=== PATIENT | female | born 1995 | race African-American/Black ===

== ENCOUNTER 2017-03-21 13:48 | Inpatient (IN) | payer OTHER ==
[2017-03-21] VITALS (12 sets, daily range): BP systolic 120–163; BP diastolic 79–112; PULSE 60–123; RESP 14–15; TEMP 93.7–98.3; O2SAT 97–100
[~2017-03-21 13:48] MED LIST: Z.0.NO CURRENT MEDS
[2017-03-21] MEDS ORDERED: WATER IV ONE ×2 (14:00)
[2017-03-21] MEDS ORDERED: SODIUM CHLOR 0.9% 1000 ML INJ 1,000 ML IV ONE (14:00)
[2017-03-21] MEDS ORDERED: ACETYLCYSTEINE IV ONE ×4 (14:00)
[2017-03-21] MEDS ORDERED: ACETYLCYSTEINE INJ 3,750 MG in DEXTROSE 5% IN WATE 500 ML INJ 500 ML IV ONE ×2 (14:00)
[2017-03-21] MEDS ORDERED: DEXTROSE 5% IV ONE ×4 (14:00)
[2017-03-21] MEDS ORDERED: WATE IV ONE ×2 (14:00)
[2017-03-21] MEDS ORDERED: ETOMIDATE 20 MG/10 ML VIAL IV PUSH ONE (14:30)
[2017-03-21] MEDS ORDERED: ACTIVATED CHARCOAL LIQUID 25 GM/120 ML BTL NG ONE (14:30)
[2017-03-21] MEDS ORDERED: SUCCINYLCHOLINE CHLORIDE 200 MG/10 ML VIAL IV PUSH ONE (14:30)
[2017-03-21] MEDS ORDERED: PROPOFOL 1000 MG/100 ML INJ 100 ML ONE (14:37)
[2017-03-21 14:43] LABS: AUTOMATED NEUTROPHIL # 2.1 TH/MM3 (1.8-7.7); BASOPHIL % 0.6 % (0.0-2.0); HEMATOCRIT 36.6 % (35.0-46.0); HEMO FLAGS DIFF FINAL; LYMPH % 19.9 % (9.0-44.0); LYMPHOCYTE # 0.6 TH/MM3 (1.0-4.8); MEAN CELL VOLUME 79.2 FL (80.0-100.0); MEAN CORPUSCULAR HEMOGLOBIN 25.7 PG (27.0-34.0); MEAN CORPUSCULAR HGB CONC 32.4 % (32.0-36.0); MONO % 8.4 % (0.0-8.0); NEUT % 71.1 % (16.0-70.0); PLATELET COUNT 218 TH/MM3 (150-450); RED BLOOD COUNT 4.63 MIL/MM3 (4.00-5.30); RED CELL DISTRIBUTION WIDTH 14.2 % (11.6-17.2)
[2017-03-21] MEDS ORDERED: PROPOFOL 1000 MG/100 ML INJ 100 ML IV SCH ×2 (14:45→16:00)
[2017-03-21 14:54] LABS: ANION GAP 12 MEQ/L (5-15)
--- NOTE | 2017-03-21 15:00 | PD ---
HPI Chief Complaint: overdose Time Seen by Provider: 13:51 Travel History International Travel<30 days: No Contact w/Intl Traveler<30days: No Traveled to known affect area: No History of Present Illness HPI 22-year-old female came to the emergency room with history of Tylenol PM overdose. Patient was in a hotel and the cost estimating manager was trying to get her out of the hotel. The fire department paramedics were called incidentally in the hotel for another patient and saw this patient from a distance and did not like the way she looked. They asked the instrumental musician to come and do a welfare check. When the instrumental musician arrived they agreed and called EMS to come and take her to the emergency room. EMS found 3 bottles of Tylenol PM all of them bought this morning. Out of the 3 bottles, one was still sealed. The other 2 had their seal open and total of 120 pills missing. Each pill was 500 mg of acetaminophen and 25 mg of Benadryl. Patient was tachycardic and delirious. She was talking but not making sense and sort of incoherent. Upon arrival her GCS was 13 and heart rate was in 1 teens. They did not notice any vomitus in the area. [facility] Past Medical History Narrative Medical List of her past medical, surgical, social and family history was reviewed from the nursing note. Asthma: Yes Cardiovascular Problems: No Diminished Hearing: No Genitourinary: No Musculoskeletal: Yes (scoliosis) Neurologic: No Respiratory: Yes Sickle Cell Disease: No Social History Alcohol Use: No Tobacco Use: No Substance Use: No Allergies-Medications (Allergen,Severity, Reaction): Coded Allergies: No Known Allergies (Verified , 08/25/12) Comments No known drug allergies. Reported Meds & Prescriptions Reported Meds & Active Scripts Active Active Prescriptions or Reported Medications Unobtainable Narrative Medication List of her home medications reviewed from the nursing note. Review of Systems Except as stated in HPI: all other systems reviewed are Neg Physical Exam Narrative GENERAL: Eyes open and looking around but not answering questions appropriately. Patient is mumbling and incomprehensible words SKIN: Focused skin assessment warm/dry. HEAD: Atraumatic. Normocephalic. EYES: Pupils equal and round. No scleral icterus. No injection or drainage. ENT: No nasal bleeding or discharge. Mucous membranes pink and moist. NECK: Trachea midline. No JVD. CARDIOVASCULAR: Regular rate and rhythm. No murmur appreciated. RESPIRATORY: No accessory muscle use. Clear to auscultation. Breath sounds equal bilaterally. GASTROINTESTINAL: Abdomen soft, non-tender, nondistended. Hepatic and splenic margins not palpable. MUSCULOSKELETAL: No obvious deformities. No clubbing. No cyanosis. No edema. NEUROLOGICAL: GCS of 13. No obvious cranial nerve deficits. Motor grossly within normal limits. Normal speech. PSYCHIATRIC: Seems delirious, poor insight and judgment Data Data Last Documented VS Vital Signs Date Time Temp Pulse Resp B/P Pulse Ox O2 Delivery O2 Flow Rate FiO2 03/21/17 14:50 100 50 03/21/17 14:45 123 15 163/112 Room Air 03/21/17 14:15 98.3 Orders Complete Blood Count With Diff (03/21/17 13:51) Comprehensive Metabolic Panel (03/21/17 13:51) Psych Screen (03/21/17 13:51) Drug Screen, Random Urine (03/21/17 13:51) Alcohol (Ethanol) (03/21/17 13:51) Salicylates (Aspirin) (03/21/17 13:51) Electrocardiogram (03/21/17 ) Sodium Chlor 0.9% 1000 Ml Inj (Ns 1000 M (03/21/17 14:00) Acetylcysteine Inj (Acetadote Inj) (03/21/17 14:00) Acetylcysteine Inj (Acetadote Inj) (03/21/17 14:00) Acetylcysteine Inj (Acetadote Inj) (03/21/17 14:00) Call Poison Control (03/21/17 13:59) Succinylcholine Inj (Quelicin Inj) (03/21/17 14:30) Etomidate Inj (Amidate Inj) (03/21/17 14:30) Charcoal Activated Liq (Actidose-Aqua Li (03/21/17 14:30) Propofol 1000 Mg/100 Ml Inj (Diprivan 10 (03/21/17 14:37) Propofol 1000 Mg/100 Ml Inj (Diprivan 10 (03/21/17 14:45) ^ Infusion (03/21/17 14:42) RASS (03/21/17 14:42) Neurological Rass Scale VINCENT.Q2H (03/21/17 14:42) ^ Orogastric Tube (03/21/17 14:42) Urinary Catheter Insert/Apply (03/21/17 14:42) Chest, Single Ap (03/21/17 ) Restraints Non-Violent VINCENT.Q3H (03/21/17 14:42) Tylenol (Acetaminophen) (03/21/17 14:11) Admit Order (Ed Use Only) (03/21/17 15:40) Labs Laboratory Tests Test 03/21/17 03/21/17 14:11 14:35 White Blood Count 3.0 TH/MM3 Red Blood Count 4.63 MIL/MM3 Hemoglobin 11.9 GM/DL Hematocrit 36.6 % Mean Corpuscular Volume 79.2 FL Mean Corpuscular Hemoglobin 25.7 PG Mean Corpuscular Hemoglobin 32.4 % Concent Red Cell Distribution Width 14.2 % Platelet Count 218 TH/MM3 Mean Platelet Volume 8.6 FL Neutrophils (%) (Auto) 71.1 % Lymphocytes (%) (Auto) 19.9 % Monocytes (%) (Auto) 8.4 % Eosinophils (%) (Auto) 0.0 % Basophils (%) (Auto) 0.6 % Neutrophils # (Auto) 2.1 TH/MM3 Lymphocytes # (Auto) 0.6 TH/MM3 Monocytes # (Auto) 0.3 TH/MM3 Eosinophils # (Auto) 0.0 TH/MM3 Basophils # (Auto) 0.0 TH/MM3 CBC Comment DIFF FINAL Differential Comment Sodium Level 141 MEQ/L Potassium Level 3.7 MEQ/L Chloride Level 111 MEQ/L Carbon Dioxide Level 18.2 MEQ/L Anion Gap 12 MEQ/L Blood Urea Nitrogen 5 MG/DL Creatinine 0.94 MG/DL Estimat Glomerular Filtration 91 ML/MIN Rate Random Glucose 86 MG/DL Calcium Level 7.7 MG/DL Total Bilirubin 0.6 MG/DL Aspartate Amino Transf 31 U/L (AST/SGOT) Alanine Aminotransferase 40 U/L (ALT/SGPT) Alkaline Phosphatase 55 U/L Total Protein 7.8 GM/DL Albumin 3.9 GM/DL Salicylates Level LESS THAN 1.7 MG/DL Acetaminophen Level 304.0 MCG/ML Ethyl Alcohol Level LESS THAN 3 MG/DL Urine Opiates Screen NEG Urine Barbiturates Screen NEG Urine Amphetamines Screen NEG Urine Benzodiazepines Screen NEG Urine Cocaine Screen NEG Urine Cannabinoids Screen POS MDM Medical Decision Making Medical Screen Exam Complete: Yes Emergency Medical Condition: Yes Medical Record Reviewed: Yes Interpretation(s) Twelve-lead EKG was reviewed by me. Normal sinus rhythm, normal axis, tachycardia, nonspecific ST-T wave changes. Heart rate of 124 bpm. Differential Diagnosis Intentional overdose, suicidal ideation, Tylenol toxicity Narrative Course 2:55 PM upon calculation it was noticed that patient had swallowed 60,000 mg of acetaminophen. This is significantly more than the maximum dose. The exact time taken was unknown. Given this I decided to start her on Acetadote. Order was done as per the protocol. Also I decided to give her charcoal. However given her mental status it was unsafe to give her charcoal without protecting her airway. I decided to intubate her. Please refer to my intubation note. Currently waiting for the labs, CT scan and x-ray to be done and resulted. 3:12 PM I was told that patient's Tylenol level was more than 300. Awaiting for the actual results to come through. Liver function tests is within normal limit. She has some leukopenia. Awaiting for the busher helper to call back so that the patient can be admitted to the ICU. 3:42 PM Tylenol level is 304. She'll require a repeat Tylenol level in 4 hours. But as stated the Acetadote at this point is certainly a good move. Patient is admitted to the busher helper. Rest x-ray was suggestive of a right mainstem intubation. Tube will be pulled out by 2 cm and repeat x-ray will be ordered. Critical Care Narrative Aggregate critical care time was 60 minutes. Time to perform other separately billable procedures was not included in the critical care time. My time did not include minutes spent treating any other patients simultaneously or on activities that did not directly contribute to the patient's treatment. The services I provided to this patient were to treat and/or prevent clinically significant deterioration that could result in: Tylenol overdose, altered mental status, intubation, ventilator management I provided critical care services requiring my management, as noted below: Chart data review, documentation time, medication orders and management, vital sign assessments/reviewing monitor data, ordering and reviewing lab tests, ordering and interpreting/reviewing x-rays and diagnostic studies, care of the patient and discussion of the patient with the admitting physicians. Procedures Procedure Narrative After the risks and benefits were discussed the following procedure was performed: INTUBATION: The patient was put in optimal position for the procedure. Rapid sequence intubation was initiated by me using 20 milligrams of etomidate IV and 100 milligrams of succinylcholine IV. The patient was intubated with a 7.5 cuffed endotracheal tube. Tube placement was confirmed by visualization of the tube and balloon passing through the cords, capnometry and subsequent chest x-ray. Breath sounds were equal and well aerated bilaterally postintubation. No breath sounds over stomach. Patient tolerated procedure well. EKG Prior to Arrival: No Physician Communication Physician Communication Diagnosis Primary Impression: Tylenol overdose Qualified Code: T39.1X2A - Tylenol overdose, intentional self-harm, initial encounter Additional Impression: Altered mental status Qualified Code: R41.0 - Delirium Admitting Information Admitting Physician Requests: Admit Scripts Unable to Obtain Active Prescriptions or Reported Meds Cassidy Miller MD March 21, 2017 15:00 Critical Care Narrative Aggregate critical care time was 60 minutes. Time to perform other separately billable procedures was not included in the critical care time. My time did not include minutes spent treating any other patients simultaneously or on activities that did not directly contribute to the patient's treatment. The services I provided to this patient were to treat and/or prevent clinically significant deterioration that could result in: Tylenol overdose, altered mental status, intubation, ventilator management I provided critical care services requiring my management, as noted below: Chart data review, documentation time, medication orders and management, vital sign assessments/reviewing monitor data, ordering and reviewing lab tests, ordering and interpreting/reviewing x-rays and diagnostic studies, care of the patient and discussion of the patient with the admitting physicians. Procedures Procedure Narrative After the risks and benefits were discussed the following procedure was performed: INTUBATION: The patient was put in optimal position for the procedure. Rapid sequence intubation was initiated by me using 20 milligrams of etomidate IV and 100 milligrams of succinylcholine IV. The patient was intubated with a 7.5 cuffed endotracheal tube. Tube placement was confirmed by visualization of the tube and balloon passing through the cords, capnometry and subsequent chest x-ray. Breath sounds were equal and well aerated bilaterally postintubation. No breath sounds over stomach. Patient tolerated procedure well. EKG Prior to Arrival: No Diagnosis Primary Impression: Tylenol overdose Qualified Code: T39.1X2A - Tylenol overdose, intentional self-harm, initial encounter Additional Impression: Altered mental status Qualified Code: R41.0 - Delirium Admitting Information Admitting Physician Requests: Cassidy Crain MD March 21, 2017 15:00
[2017-03-21 15:04] LABS: ALKALINE PHOSPHATASE 55 U/L (45-117); ALT (GPT) 40 U/L (10-53); AST (GOT) 31 U/L (15-37); BICARBONATE 18.2 MEQ/L (21.0-32.0); BLOOD UREA NITROGEN 5 MG/DL (7-18); CHLORIDE 111 MEQ/L (98-107); GLOMERULAR FILTRATION RATE 91 ML/MIN (>89); POTASSIUM 3.7 MEQ/L (3.5-5.1); SODIUM (NA) 141 MEQ/L (136-145); TOTAL BILIRUBIN ADULT 0.6 MG/DL (0.2-1.0)
--- NOTE | 2017-03-21 15:25 | RADRPT ---
EXAM DATE/TIME: 03/21/2017 15:01 [facility] COMPARISON: No previous studies available for comparison. INDICATIONS : Post ET tube placement and OG tube placement MEDICAL HISTORY : None. SURGICAL HISTORY : None. ENCOUNTER: Initial ACUITY: 1 day PAIN SCORE: Non-responsive. LOCATION: Bilateral chest FINDINGS: A single view of the chest demonstrates the lungs to be symmetrically aerated without evidence of mas s, infiltrate or effusion. Endotracheal tube with tip at the orifice of the right mainstem bronchus. Nasogastric tube with tip in stomach, the side hole is at the GE junction and should be advanced. Th e cardiomediastinal contours are unremarkable. Osseous structures are intact. CONCLUSION: 1. Endotracheal tube with tip at the orifice of the right mainstem bronchus. This should be retracted 1 cm. 2. Nasogastric tube with tip in the stomach. This could also be advanced at least 5 cm. Amos Gonzáles MD on March 21, 2017 at 15:21 Board Certified Radiologist. This report was verified electronically.
[2017-03-21 15:29] LABS: BARBITURATES, URINE NEG (NEG); COCAINE, URINE NEG (NEG)
[2017-03-21 15:30] LABS: AMPHETAMINE, URINE NEG (NEG)
[2017-03-21] MEDS ORDERED: fentaNYL DRIP 250 ML IV SCH (15:45)
[2017-03-21] MEDS ORDERED: POTASSIUM PHOSPHATE MONOBASIC 500 MG TAB PO/TUBE PRN (15:45)
[2017-03-21] MEDS ORDERED: MAGNESIUM OXIDE 400 MG TAB PO PRN (15:45)
[2017-03-21] MEDS ORDERED: SODIUM PHOSPHATE INJ 30 MMOL in SODIUM CHLOR 0.9% 250 ML INJ 240 ML IV PRN (15:45)
[2017-03-21] MEDS ORDERED: POTASSIUM CHLOR 20 MEQ PREMIX 100 ML IV PRN ×2 (15:45)
[2017-03-21] MEDS ORDERED: POTASSIUM CHLOR 40 MEQ PREMIX 100 ML IV PRN (15:45)
[2017-03-21] MEDS ORDERED: POTASSIUM PHOSPHATE MONOBASIC 500 MG TAB PO PRN (15:45)
[2017-03-21] MEDS ORDERED: MAGNESIUM SULFATE INJ 2 GM in SODIUM CHLORIDE 0.9% INJ 96 ML IV PRN (15:45)
[2017-03-21] MEDS ORDERED: MAGNESIUM SULFATE INJ 4 GM in SODIUM CHLORIDE 0.9% INJ 92 ML IV PRN (15:45)
[2017-03-21] MEDS ORDERED: RESP: ALBUTEROL 2.5 MG/IPRATROPIUM 0.5 MG NEB (PRN) INH (15:45)
--- NOTE | 2017-03-21 15:54 | HHI.HP ---
[facility] Service Critical Care Medicine Primary Care Physician Olimpia Montalvo MD Admission Diagnosis Tylenol overdose, altered mental status Diagnosis: Chief Complaint: intentional tylenol overdose Travel History International Travel<30 Days: No Contact w/Intl Traveler <30 Da: No Traveled to Known Affected Are: No History of Present Illness This is a 22yF brought in by EMS for suspected intentional tylenol PM overdose. Unknown time of ingestion. Patient found by EMS in hotel with 120 tylenol PM 500mg tabs missing. She was tachycardic, delirious. GCS 13 on arrival to ER. She was intubated by the emergency department and proceeded with activated charcoal. The patient is intubated and sedated and unable to provide any additional history. Laboratory data is significant for a serum acetaminophen level of 304. Review of Systems ROS Limitations: Clinical Condition, Intoxication, Intubated, Altered Mental Status, Unresponsive Past Family Social History Allergies: Coded Allergies: No Known Allergies (Verified , 08/25/12) Past Medical History unknown and unobtainable secondary to the clinical condition of the patient. Per chart review: Asthma scoliosis Past Surgical History unknown secondary to the clinical condition of the patient. Reported Medications unknown secondary to the clinical condition of the patient. per chart review, it does not appear that the patient takes any home medications. Active Ordered Medications See MAR Family History unknown and unobtainable secondary to the clinical condition of the patient. Social History unknown and unobtainable secondary to the clinical condition of the patient. Physical Exam Vital Signs Vital Signs Date Time Temp Pulse Resp B/P Pulse Ox O2 Delivery O2 Flow Rate FiO2 03/21/17 14:50 100 50 Physical Exam gen: young female, lying in bed, intubated, sedated. heent: large amount of black charcoal around the oropharynx and on her hospital gown. pupils 2mm equal round and reactive. mucous membranes moist. neck: no jvd. trachea midline. orotracheally intubated. chest: equal chest rise. clear to auscultation cv: tachycardic rate, regular rhythm. sinus rhythm by telemetry abd: soft, nontender, nondistended. no guarding. extr: no peripheral edema. distal pulses 2+ neuro: RASS -3. briskly purposeful. does not follow commands. moves all extremities. Laboratory Laboratory Tests Test 03/21/17 03/21/17 14:11 14:35 White Blood Count 3.0 Red Blood Count 4.63 Hemoglobin 11.9 Hematocrit 36.6 Mean Corpuscular Volume 79.2 Mean Corpuscular Hemoglobin 25.7 Mean Corpuscular Hemoglobin 32.4 Concent Red Cell Distribution Width 14.2 Platelet Count 218 Mean Platelet Volume 8.6 Neutrophils (%) (Auto) 71.1 Lymphocytes (%) (Auto) 19.9 Monocytes (%) (Auto) 8.4 Eosinophils (%) (Auto) 0.0 Basophils (%) (Auto) 0.6 Neutrophils # (Auto) 2.1 Lymphocytes # (Auto) 0.6 Monocytes # (Auto) 0.3 Eosinophils # (Auto) 0.0 Basophils # (Auto) 0.0 CBC Comment DIFF FINAL Differential Comment Sodium Level 141 Potassium Level 3.7 Chloride Level 111 Carbon Dioxide Level 18.2 Anion Gap 12 Blood Urea Nitrogen 5 Creatinine 0.94 Estimat Glomerular Filtration 91 Rate Random Glucose 86 Calcium Level 7.7 Total Bilirubin 0.6 Aspartate Amino Transf 31 (AST/SGOT) Alanine Aminotransferase 40 (ALT/SGPT) Alkaline Phosphatase 55 Total Protein 7.8 Albumin 3.9 Salicylates Level LESS THAN 1.7 Acetaminophen Level 304.0 Ethyl Alcohol Level LESS THAN 3 Urine Opiates Screen NEG Urine Barbiturates Screen NEG Urine Amphetamines Screen NEG Urine Benzodiazepines Screen NEG Urine Cocaine Screen NEG Urine Cannabinoids Screen POS Result Diagram: 03/21/17 1411 03/21/17 1411 Imaging Last Impressions Chest X-Ray 03/21/17 0000 Signed Impressions: Service Date/Time: Tuesday, March 21, 2017 15:01 - CONCLUSION: 1. Endotracheal tube with tip at the orifice of the right mainstem bronchus. This should be retracted 1 cm. 2. Nasogastric tube with tip in the stomach. This could also be advanced at least 5 cm. Amos Gonzáles MD Assessment and Plan Assessment and Plan Assessment: 22yF with apparent intentional overdose of acetaminophen and benadryl. Poison control has been notified. Certainly she has ingested enough to be life-threatening at this time, and her acetaminophen level is very high. We will proceed with Mucomyst, serial labs. Will consult GI to follow along. frequent neuro checks and glucose checks. She remains very critically ill at this time. Neuro: Toxic Encephalopathy Intentional overdose -- q1h neuro checks -- prop/fentanyl for goal RASS -2 and vent synchrony -- psych will need to be consulted when the patient is more awake. Resp: Acute Hypoxic and Hypercarbic Respiratory Failure -- vent bundle --hob at 30 degrees -- wean fio2 for goal spo2 > 92% -- no SBT today given acute toxic ingestion CV: Sinus tachycardia -- continue telemetry -- monitor QRS width given anticholinergic overdose Renal: -- strict q1h uop -- choudhary for accurate I/Os FEN/GI: Acute acetaminophen overdose -- serial LFTs, coags -- GI consult -- q2h glucose -- serial tylenol levels -- mucomyst -- ICU electrolyte protocol -- daily bmp -- d10w @ 30 mL/hr Heme/ID: Concern for coagulopathy secondary to acute liver disease -- serial coags -- daily cbc Endo: Concern for hypoglycemia secondary to acute liver disease -- q2h glucose Prophy: -- SQH -- SCDs Lines: -- piv's Dispo: -- admit to the ICU. she remains critically ill. Critical care time: 79 minutes, exclusive of separately billable procedures. Code Status Full Code Tre Alan MD March 21, 2017 15:54
[2017-03-21] MEDS: RESP: ALBUTEROL 2.5 MG/IPRATROPIUM 0.5 MG NEB (SCH) INH ×2 (16:56→22:00)
--- NOTE | 2017-03-21 16:56 | RADRPT ---
EXAM DATE/TIME: 03/21/2017 16:30 [facility] COMPARISON: CHEST SINGLE AP, March 21, 2017, 15:01. INDICATIONS : ET tube reposition. MEDICAL HISTORY : None. SURGICAL HISTORY : None. ENCOUNTER: Subsequent ACUITY: 1 day PAIN SCORE: Non-responsive. LOCATION: Bilateral chest FINDINGS: Endotracheal tube is present in satisfactory position. Nasogastric tube is present. The sidehole is i n the distal esophagus. Mild left perihilar infiltrate now evident. Right lung is grossly clear. No e vidence of effusion. Cardiac contours are stable. CONCLUSION: Mild left perihilar infiltrate Siva Marcelo MD on March 21, 2017 at 16:53 Board Certified Radiologist. This report was verified electronically.
--- NOTE | 2017-03-21 17:09 | PD.CONS ---
HPI History of Present Illness This is a 22 year old female who was brought to the ER for evaluation as a Tylenol OD. She is currently sedated on the ventilator and unable to provide any history and therefore the history has been obtained from the EMR and nursing staff. She was found confused by EMS with a suicide letter after a wellness call was placed. She had 2 bottles of Tylenol PM 120 count, with a receipt from this morning. 76 pills were missing out of the first bottle and the second bottle was full. The nurse reports that she was confused, but awake on arrival, but intubated and placed on mechanical ventilation for airway protection. An NGT was placed in the ER and charcoal was given, but she vomited this back up. Tylenol level came back as 304, ETOH < 3, Cannabinoids (+ ). She was started on Acetylcysteine IV per protocol. GI has been consulted for further evaluation. Baseline labs- platelets 218, T. Bili 0.6, AST 31, ALT 40, Alk Phosph 55, No ammonia, no coag's. (Kathleen Cage) PFSH Past Medical History Asthma per EMR Unable to obtain Past Surgical History Unable to obtain (Kathleen Cage) Coded Allergies: No Known Allergies (Verified , 08/25/12) Medications Allergies Coded Allergies Type Severity Reaction Last Updated Verified No Known Allergies 08/25/12 Yes Active Scripts Medications Dose Route/Sig Days Date Category No Current Meds (Miscellaneous Medication) [facility] 08/25/12 Reported Tylenol PM- 76 out of 120 bottle missing, purchased this am. Family History Unable to obtain Social History Toxicology screen positive for marijuana (Kathleen Cage) Review of Systems ROS Unable to obtain (Kathleen Cage) GI Exam Vitals I&O Vital Signs Date Time Temp Pulse Resp B/P Pulse Ox O2 Delivery O2 Flow Rate FiO2 03/21/17 14:50 100 50 Imaging Last Impressions Chest X-Ray 03/21/17 0000 Signed Impressions: Service Date/Time: Tuesday, March 21, 2017 15:01 - CONCLUSION: 1. Endotracheal tube with tip at the orifice of the right mainstem bronchus. This should be retracted 1 cm. 2. Nasogastric tube with tip in the stomach. This could also be advanced at least 5 cm. Amos Gonzáles MD Laboratory Test 03/21/17 03/21/17 14:11 14:35 White Blood Count 3.0 TH/MM3 Red Blood Count 4.63 MIL/MM3 Hemoglobin 11.9 GM/DL Hematocrit 36.6 % Mean Corpuscular Volume 79.2 FL Mean Corpuscular Hemoglobin 25.7 PG Mean Corpuscular Hemoglobin 32.4 % Concent Red Cell Distribution Width 14.2 % Platelet Count 218 TH/MM3 Mean Platelet Volume 8.6 FL Neutrophils (%) (Auto) 71.1 % Lymphocytes (%) (Auto) 19.9 % Monocytes (%) (Auto) 8.4 % Eosinophils (%) (Auto) 0.0 % Basophils (%) (Auto) 0.6 % Neutrophils # (Auto) 2.1 TH/MM3 Lymphocytes # (Auto) 0.6 TH/MM3 Monocytes # (Auto) 0.3 TH/MM3 Eosinophils # (Auto) 0.0 TH/MM3 Basophils # (Auto) 0.0 TH/MM3 CBC Comment DIFF FINAL Differential Comment Sodium Level 141 MEQ/L Potassium Level 3.7 MEQ/L Chloride Level 111 MEQ/L Carbon Dioxide Level 18.2 MEQ/L Anion Gap 12 MEQ/L Blood Urea Nitrogen 5 MG/DL Creatinine 0.94 MG/DL Estimat Glomerular Filtration 91 ML/MIN Rate Random Glucose 86 MG/DL Calcium Level 7.7 MG/DL Total Bilirubin 0.6 MG/DL Aspartate Amino Transf 31 U/L (AST/SGOT) Alanine Aminotransferase 40 U/L (ALT/SGPT) Alkaline Phosphatase 55 U/L Total Protein 7.8 GM/DL Albumin 3.9 GM/DL Salicylates Level LESS THAN 1.7 MG/DL Acetaminophen Level 304.0 MCG/ML Ethyl Alcohol Level LESS THAN 3 MG/DL Urine Opiates Screen NEG Urine Barbiturates Screen NEG Urine Amphetamines Screen NEG Urine Benzodiazepines Screen NEG Urine Cocaine Screen NEG Urine Cannabinoids Screen POS Physical Examination HEENT: Normocephalic; atraumatic; no jaundice. CHEST: CTA, OETT to vent CARDIAC: Regular, mildly tachycardic ABDOMEN: Soft, nondistended, nontender; no hepatosplenomegaly; bowel sounds are present in all four quadrants. EXTREMITIES: No clubbing, cyanosis, or edema. SKIN: Normal; no rash; no jaundice. 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 Pt found with suicide note and 2 Tylenol PM bottles purchased this am according to receipt, with 76/120 missing from first bottle and none missing from 2nd bottle. Tylenol level 304. Nurse reports that she was slightly confused , but awake on arrival and intubated/mechanical ventilation for airway protection. S/P Charcoal, pt vomited this back up. Started on Acetylcysteine IV per protocol. Will get stat coags and ammonia and check LFT/PT/Ammonia q4h for now. Cont. Acetylcysteine per protocol. - Encephalopathy secondary to above. Will get baseline ammonia. - Resp. Failure. Pt intubated/mechanical ventilation for airway protection. Per EMR, there is a hx of asthma. PLAN: - NPO - Acetylcysteine per protocol - Ammonia and PT/INR/APTT now - LFT, PT/INR, Ammonia q4h - CCM following - Supportive care - Further recommendations to follow based on results of above - PT seen and examined by Dr. Hartman and myself and this note is written on his behalf (Kathleen Cage) Physician Comments Seen and examined with NA. intubated and sedated. On mucomyst protocol via IV. Monitor labs. PT/INR closely. Will follow, thank you (Reyna Hartman MD) Kathleen Cage March 21, 2017 17:09 Reyna Hartman MD March 21, 2017 18:39
[2017-03-21 17:52] LABS: APTT (PATIENT) 25.8 SEC (24.3-30.1); INTERNATIONAL NORMALIZED RATIO 1.2 RATIO
[2017-03-21] MEDS: DEXTROSE 10% INJ 1,000 ML IV SCH (18:03)
--- NOTE | 2017-03-21 18:23 | EKG ---
Date Performed: 03/21/2017 Time Performed: 14:10:23 PTAGE: 22 years EKG: SINUS TACHYCARDIA WITH SHORT MA INTERVAL NONSPECIFIC ST & T-WAVE ABNORMALITY ABNORMAL ECG NO PREVIOUS TRACING DOCTOR: You Santiago Interpretating Date/Time 03/21/2017 18:21:55
[2017-03-21] MEDS ORDERED: MIDAZOLAM 100 MG/ML INJ 100 ML ONE (19:43)
[2017-03-21] MEDS ORDERED: MIDAZOLAM 100 MG/ML INJ 100 ML IV SCH (19:45)
[2017-03-21] MEDS: CHLORHEXIDINE 0.12% (ORAL KIT) 15 ML CUP MT SCH (20:00)
[2017-03-21 21:58] LABS: APTT (PATIENT) 39.9 SEC (24.3-30.1); INTERNATIONAL NORMALIZED RATIO 1.8 RATIO
[2017-03-21 22:42] LABS: ACETAMINOPHEN 115.2 MCG/ML (10.0-30.0); INDIRECT BILIRUBIN 0.4 MG/DL (0.0-0.8); TOTAL BILIRUBIN ADULT 0.5 MG/DL (0.2-1.0)
[2017-03-21] MEDS: HEPARIN SODIUM - SQ 10,000 UNITS/ML VIAL SQ SCH (22:49)
[2017-03-22] VITALS (19 sets, daily range): BP systolic 105–147; BP diastolic 51–96; PULSE 46–115; RESP 15–26; TEMP 94.7–100.4; O2SAT 100
[2017-03-22] MEDS ORDERED: CHLORHEXIDINE GLUCONATE 2 % 1 PACK (2 CLOTHS)(extra cloths) TOPICAL PRN (00:15)
[2017-03-22 01:23] LABS: INTERNATIONAL NORMALIZED RATIO 1.2 RATIO; PROTHROMBIN TIME - PATIENT 13.4 SEC (9.8-11.6)
[2017-03-22 01:59] LABS: INDIRECT BILIRUBIN 0.7 MG/DL (0.0-0.8); TOTAL BILIRUBIN ADULT 0.9 MG/DL (0.2-1.0)
[2017-03-22] MEDS: CHLORHEXIDINE GLUCONATE 2 % 1 PACK (2 CLOTHS)(taper/protocol) TOPICAL SCH (02:55)
[2017-03-22] MEDS: RESP: ALBUTEROL 2.5 MG/IPRATROPIUM 0.5 MG NEB (SCH) INH ×3 (04:36→15:34)
[2017-03-22 04:43] LABS: HEMATOCRIT 32.5 % (35.0-46.0); MEAN CELL VOLUME 77.9 FL (80.0-100.0); MEAN CORPUSCULAR HEMOGLOBIN 26.2 PG (27.0-34.0); MEAN CORPUSCULAR HGB CONC 33.6 % (32.0-36.0); PLATELET COUNT 217 TH/MM3 (150-450); RED BLOOD COUNT 4.16 MIL/MM3 (4.00-5.30); RED CELL DISTRIBUTION WIDTH 13.6 % (11.6-17.2); REVIEW FLAG FINAL; WHITE BLOOD COUNT 4.7 TH/MM3 (4.0-11.0)
[2017-03-22 04:51] LABS: APTT (PATIENT) 26.4 SEC (24.3-30.1); INTERNATIONAL NORMALIZED RATIO 1.1 RATIO; PROTHROMBIN TIME - PATIENT 12.7 SEC (9.8-11.6)
[2017-03-22 05:13] LABS: BICARBONATE 20.8 MEQ/L (21.0-32.0); INDIRECT BILIRUBIN 0.6 MG/DL (0.0-0.8); TOTAL BILIRUBIN ADULT 0.9 MG/DL (0.2-1.0)
[2017-03-22 05:15] LABS: POTASSIUM 2.6 MEQ/L (3.5-5.1)
[2017-03-22] MEDS: POTASSIUM CHLOR 40 MEQ PREMIX 100 ML IV PRN ×3 (06:02→08:12)
[2017-03-22] MEDS: HEPARIN SODIUM - SQ 10,000 UNITS/ML VIAL SQ SCH ×3 (06:02→21:01)
[2017-03-22] MEDS: LACTULOSE SYRUP 20 GM/30 ML CUP PO SCH ×2 (09:00→19:32)
--- NOTE | 2017-03-22 10:34 | HHI.GIFU ---
Subjective Remarks Resting in bed, lightly sedated on ventilator. Does awaken and follow commands , although lethargic. Plan is to wean sedation and try to extubate today so that we can closely monitor neurological status. (Kathleen Cage) Objective Vitals I&O Vital Signs Date Time Temp Pulse Resp B/P Pulse Ox O2 Delivery O2 Flow Rate FiO2 03/22/17 08:20 100 40 03/22/17 06:00 115 03/22/17 04:14 100 40 03/22/17 04:00 40 03/22/17 04:00 108 03/22/17 04:00 100.4 108 15 117/59 100 03/22/17 02:00 92 03/22/17 01:09 100 40 03/22/17 00:51 59 03/22/17 00:17 94.7 46 15 147/96 100 03/21/17 23:51 100 100 03/21/17 23:00 60 15 135/85 100 Ventilator 40 03/21/17 22:36 99 40 03/21/17 22:00 93.7 68 15 131/79 100 Ventilator 40 03/21/17 21:00 70 15 136/96 100 Ventilator 40 03/21/17 20:00 72 15 122/83 100 Ventilator 40 03/21/17 19:00 97.9 76 15 120/81 100 Ventilator 40 03/21/17 19:00 40 03/21/17 16:55 99 40 03/21/17 14:50 100 50 03/21/17 14:45 123 15 163/112 100 Room Air 03/21/17 14:30 120 14 157/99 97 Room Air 03/21/17 14:30 40 03/21/17 14:15 118 16 97 Room Air 03/21/17 14:15 98.3 115 14 154/110 97 Room Air I/O 03/21/17 03/21/17 03/21/17 03/22/17 03/22/17 03/22/17 07:00 15:00 23:00 07:00 15:00 23:00 Intake Total 1005 ml Output Total 1700 ml 250 ml Balance -1700 ml 755 ml Intake Oral 0 ml IV Total 1005 ml Output Urine Total 1700 ml 250 ml # Voids 0 # Bowel Movements 0 Laboratory Laboratory Tests Test 03/21/17 03/21/17 03/21/17 03/21/17 14:11 14:35 17:20 20:30 White Blood Count 3.0 Red Blood Count 4.63 Hemoglobin 11.9 Hematocrit 36.6 Mean Corpuscular Volume 79.2 Mean Corpuscular Hemoglobin 25.7 Mean Corpuscular Hemoglobin 32.4 Concent Red Cell Distribution Width 14.2 Platelet Count 218 Mean Platelet Volume 8.6 Neutrophils (%) (Auto) 71.1 Lymphocytes (%) (Auto) 19.9 Monocytes (%) (Auto) 8.4 Eosinophils (%) (Auto) 0.0 Basophils (%) (Auto) 0.6 Neutrophils # (Auto) 2.1 Lymphocytes # (Auto) 0.6 Monocytes # (Auto) 0.3 Eosinophils # (Auto) 0.0 Basophils # (Auto) 0.0 CBC Comment DIFF FINAL Differential Comment Sodium Level 141 Potassium Level 3.7 Chloride Level 111 Carbon Dioxide Level 18.2 Anion Gap 12 Blood Urea Nitrogen 5 Creatinine 0.94 Estimat Glomerular Filtration 91 Rate Random Glucose 86 Calcium Level 7.7 Total Bilirubin 0.6 0.5 Aspartate Amino Transf 31 18 (AST/SGOT) Alanine Aminotransferase 40 30 (ALT/SGPT) Alkaline Phosphatase 55 29 Total Protein 7.8 5.3 Albumin 3.9 2.4 Salicylates Level LESS THAN 1.7 Acetaminophen Level 304.0 115.2 Ethyl Alcohol Level LESS THAN 3 Urine Opiates Screen NEG Urine Barbiturates Screen NEG Urine Amphetamines Screen NEG Urine Benzodiazepines Screen NEG Urine Cocaine Screen NEG Urine Cannabinoids Screen POS Prothrombin Time 13.0 20.0 Prothromb Time International 1.2 1.8 Ratio Activated Partial 25.8 39.9 Thromboplast Time Ammonia 20 15 Direct Bilirubin 0.1 Indirect Bilirubin 0.4 Test 03/22/17 03/22/17 03/22/17 00:15 01:04 04:26 Nasal Screen MRSA (PCR) MRSA NOT DETECTED Prothrombin Time 13.4 12.7 Prothromb Time International 1.2 1.1 Ratio Total Bilirubin 0.9 0.9 Direct Bilirubin 0.2 0.3 Indirect Bilirubin 0.7 0.6 Aspartate Amino Transf 23 22 (AST/SGOT) Alanine Aminotransferase 38 35 (ALT/SGPT) Alkaline Phosphatase 42 40 Ammonia 45 37 Total Protein 6.6 6.3 Albumin 3.2 3.0 White Blood Count 4.7 Red Blood Count 4.16 Hemoglobin 10.9 Hematocrit 32.5 Mean Corpuscular Volume 77.9 Mean Corpuscular Hemoglobin 26.2 Mean Corpuscular Hemoglobin 33.6 Concent Red Cell Distribution Width 13.6 Platelet Count 217 Mean Platelet Volume 8.4 Activated Partial 26.4 Thromboplast Time Sodium Level 140 Potassium Level 2.6 Chloride Level 108 Carbon Dioxide Level 20.8 Anion Gap 11 Blood Urea Nitrogen 5 Creatinine 0.85 Estimat Glomerular Filtration 102 Rate Random Glucose 88 Calcium Level 7.8 Imaging Last Impressions Chest X-Ray 03/21/17 0000 Signed Impressions: Service Date/Time: Tuesday, March 21, 2017 16:30 - CONCLUSION: Mild left perihilar infiltrate Siva Marcelo MD Physical Exam HEENT: Normocephalic; atraumatic; no jaundice. CHEST: CTA, OETT to vent. CARDIAC: RRR ABDOMEN: Soft, very mildly distended, nontender; no hepatosplenomegaly; bowel sounds are present in all four quadrants. EXTREMITIES: No clubbing, cyanosis, or edema. SKIN: Normal; no rash; no jaundice. COMMISSIONS SPECIALIST: Lethargic, lightly sedated, does awaken and follows commands. (Kathleen Cage [facility]) Assessment and Plan Plan ASSESSMENT: - Tylenol Toxicity, SA. Pt found with suicide note and 2 Tylenol PM bottles purchased this am according to receipt, with 76/120 missing from first bottle and none missing from 2nd bottle. Tylenol level 304. Nurse reports that she was slightly confused , but awake on arrival and intubated/mechanical ventilation for airway protection. S/P Charcoal, pt vomited this back up. Started on Acetylcysteine IV per protocol, on Dextrose, serial labs. PT went up last night at 2030 to 20.0, INR 1.8, but has since trended down- Latest PT/INR 12.7/1.7. T. Bili 0.9, Direct bilirubin 0.3, Indirect Bilirubin 0.6, AST 22, ALT 35, Alk Phosph 40. Ammonia 37. Started on Lactulose. Will continue Acetylcysteine per protocol. Will initiate liver workup, in case her condition worsens and she needs transfer to tertiary for transplant evaluation. Yousuf Alan- plans to wean sedation and extubate to better evaluate neuro status, continue to closely monitor glucose. - Encephalopathy secondary to above. Ammonia 37. Lactulose. - Resp. Failure. Pt intubated/mechanical ventilation for airway protection. Per EMR, there is a hx of asthma. PLAN: - NPO - Cont. Acetylcysteine per protocol - LFT, PT/INR, Ammonia q6h - AFP level - Hepatitis panel - GERARDO, ASMA, AMA - Alpha 1 Antitrypsin, Ceruloplasmin - Ferritin, Iron saturation - Neurochecks - Notify GI of worsening coagulopathy, rise in LFTs - CCM following- D/W Dr. Alan - Supportive care - Further recommendations to follow based on results of above - PT seen and examined by Dr. Hartman and myself and this note is written on his behalf (Kathleen Cage) Physician Comments Seen and examined, family at bedside. LFTS stable. On mucomyst per protocol. INR levels good. Monitor glucose and ammonia levels. (Reyna Hartman MD) Ktahleen Cage March 22, 2017 10:34 Reyna Hartman MD March 22, 2017 14:30
--- NOTE | 2017-03-22 11:54 | HHI.CCPN ---
Subjective Remarks/Hospital Course Hospital Course: This is a 22yF brought in by EMS for suspected intentional tylenol PM overdose. Unknown time of ingestion. Patient found by EMS in hotel with 120 tylenol PM 500mg tabs missing. She was tachycardic, delirious. GCS 13 on arrival to ER. She was intubated by the emergency department and proceeded with activated charcoal. The patient is intubated and sedated and unable to provide any additional history. Laboratory data is significant for a serum acetaminophen level of 304. Subjective: 03/22: awake, alert, and following commands. still somewhat somnolent and not breathing over the ventilator. glucose and lfts stable this morning. no family available that we have been able to find. Objective Vital Signs Date Time Temp Pulse Resp B/P Pulse Ox O2 Delivery O2 Flow Rate FiO2 03/22/17 10:30 40 03/22/17 10:17 100 03/22/17 06:00 115 03/22/17 04:00 100.4 15 117/59 03/21/17 23:00 Ventilator Intake and Output 03/21/17 03/21/17 03/22/17 08:00 16:00 00:00 Output Total 1700 ml Balance -1700 ml Result Diagram: 03/22/17 0426 03/22/17 0426 Imaging Last Impressions Chest X-Ray 03/21/17 0000 Signed Impressions: Service Date/Time: Tuesday, March 21, 2017 15:01 - CONCLUSION: 1. Endotracheal tube with tip at the orifice of the right mainstem bronchus. This should be retracted 1 cm. 2. Nasogastric tube with tip in the stomach. This could also be advanced at least 5 cm. Amos Gonzáles MD Objective Remarks gen: young female, lying in bed, intubated, sedated. heent: pupils 2mm equal round and reactive. mucous membranes moist. neck: no jvd. trachea midline. orotracheally intubated. chest: equal chest rise. clear to auscultation cv: normal rate, regular rhythm. sinus rhythm by telemetry abd: soft, nontender, nondistended. no guarding. extr: no peripheral edema. distal pulses 2+ neuro: RASS -1. folows commands x 4. A/P Assessment and Plan Assessment: 22yF with intentional overdose of acetaminophen and benadryl. Poison control has been notified. Certainly she has ingested enough to be life- threatening at this time, and her acetaminophen level remains high, though downtrending. She is finishing her mucomyst protocol. GI following. will attempt to aggressively move towards extubation in order to preserve neuro exam and watch for encephalopathy and cerebral edema. continue to check frequent labs and glucose. She remains very critically ill at this time. Neuro: Toxic Encephalopathy Intentional overdose -- q1h neuro checks -- prop/fentanyl for goal RASS 0 and vent synchrony -- psych will need to be consulted when the patient is more awake. Resp: Acute Hypoxic and Hypercarbic Respiratory Failure- improving. -- vent bundle --hob at 30 degrees -- wean fio2 for goal spo2 > 92% -- Now that she is more awake, will pursue SBT. CV: Sinus tachycardia- resolved. -- continue telemetry -- monitor QRS width given anticholinergic overdose- improving. Renal: -- strict q1h uop -- choudhary for accurate I/Os FEN/GI: Acute acetaminophen overdose -- serial LFTs, coags -- GI consult -- q2h glucose -- serial tylenol levels -- mucomyst -- ICU electrolyte protocol -- daily bmp -- d10w @ 30 mL/hr -- GI consulted Heme/ID: Concern for coagulopathy secondary to acute liver disease -- serial coags -- daily cbc Endo: Concern for hypoglycemia secondary to acute liver disease -- q2h glucose Prophy: -- SQH -- SCDs Lines: -- piv's Dispo: -- remain in the ICU. she remains critically ill. Critical care time: 37 minutes, exclusive of separately billable procedures. Tre Alan MD March 22, 2017 11:54
[2017-03-22 12:40] LABS: APTT (PATIENT) 30.4 SEC (24.3-30.1); INTERNATIONAL NORMALIZED RATIO 1.1 RATIO; PROTHROMBIN TIME - PATIENT 12.6 SEC (9.8-11.6)
[2017-03-22 13:03] LABS: ACETAMINOPHEN 35.1 MCG/ML (10.0-30.0)
[2017-03-22 13:05] LABS: INDIRECT BILIRUBIN 0.8 MG/DL (0.0-0.8)
[2017-03-22] MEDS ORDERED: ACETYLCYSTEINE IV ONE ×2 (14:00)
[2017-03-22] MEDS ORDERED: DEXTROSE 5% IV ONE ×2 (14:00)
[2017-03-22] MEDS ORDERED: WATE IV ONE ×2 (14:00)
[2017-03-22] MEDS: CHLORHEXIDINE 0.12% (ORAL KIT) 15 ML CUP MT SCH ×2 (14:16→19:33)
[2017-03-22] MEDS ORDERED: ONDANSETRON HCL 4 MG/2 ML VIAL ONE (15:07)
[2017-03-22] MEDS ORDERED: ONDANSETRON HCL 4 MG/2 ML VIAL IV PUSH PRN (15:15)
[2017-03-22] MEDS: DEXTROSE 10% INJ 1,000 ML IV SCH (16:00)
[2017-03-22 17:10] LABS: APTT (PATIENT) 52.8 SEC (24.3-30.1); INTERNATIONAL NORMALIZED RATIO 1.1 RATIO; PROTHROMBIN TIME - PATIENT 12.7 SEC (9.8-11.6)
[2017-03-22 17:15] LABS: INDIRECT BILIRUBIN 0.7 MG/DL (0.0-0.8)
[2017-03-22 21:36] LABS: APTT (PATIENT) 47.4 SEC (24.3-30.1); INTERNATIONAL NORMALIZED RATIO 1.2 RATIO
[2017-03-22 21:53] LABS: ALKALINE PHOSPHATASE 42 U/L (45-117); ALT (GPT) 37 U/L (10-53); AST (GOT) 43 U/L (15-37); FERRITIN 63 NG/ML (8-252); INDIRECT BILIRUBIN 0.7 MG/DL (0.0-0.8); POTASSIUM 3.7 MEQ/L (3.5-5.1); TRANSFERRIN IRON PROFILE 263 MG/DL (200-360)
[2017-03-23] VITALS: BP 147/81; PULSE 80; RESP 18; TEMP 98.4; O2SAT 100
[2017-03-23 04:00] VITALS: BP 129/62; PULSE 83; RESP 18; TEMP 98.2; O2SAT 100
[2017-03-23] MEDS: CHLORHEXIDINE GLUCONATE 2 % 1 PACK (2 CLOTHS)(taper/protocol) TOPICAL SCH (04:00)
[2017-03-23 04:17] LABS: MEAN CELL VOLUME 78.9 FL (80.0-100.0); MEAN CORPUSCULAR HEMOGLOBIN 26.4 PG (27.0-34.0); MEAN CORPUSCULAR HGB CONC 33.5 % (32.0-36.0); PLATELET COUNT 185 TH/MM3 (150-450); RED BLOOD COUNT 4.18 MIL/MM3 (4.00-5.30); RED CELL DISTRIBUTION WIDTH 13.9 % (11.6-17.2); REVIEW FLAG FINAL; WHITE BLOOD COUNT 7.7 TH/MM3 (4.0-11.0)
[2017-03-23 04:38] LABS: APTT (PATIENT) 43.1 SEC (24.3-30.1); INTERNATIONAL NORMALIZED RATIO 1.2 RATIO; PROTHROMBIN TIME - PATIENT 13.1 SEC (9.8-11.6)
[2017-03-23 04:43] LABS: BICARBONATE 24.7 MEQ/L (21.0-32.0); POTASSIUM 3.4 MEQ/L (3.5-5.1)
[2017-03-23 04:45] LABS: INDIRECT BILIRUBIN 0.7 MG/DL (0.0-0.8); TOTAL BILIRUBIN ADULT 0.9 MG/DL (0.2-1.0)
[2017-03-23 04:47] LABS: ACETAMINOPHEN 5.3 MCG/ML (10.0-30.0); INDIRECT BILIRUBIN 0.7 MG/DL (0.0-0.8); TOTAL BILIRUBIN ADULT 0.9 MG/DL (0.2-1.0)
[2017-03-23] MEDS: HEPARIN SODIUM - SQ 10,000 UNITS/ML VIAL SQ SCH (05:16)
[2017-03-23] MEDS: CHLORHEXIDINE 0.12% (ORAL KIT) 15 ML CUP MT SCH (07:14)
[2017-03-23 08:00] VITALS: BP 136/64; PULSE 82; PULSE 88; RESP 14; TEMP 99.7; O2SAT 99
[2017-03-23 08:10] VITALS: O2SAT 100
[2017-03-23] MEDS: LACTULOSE SYRUP 20 GM/30 ML CUP PO SCH (08:41)
--- NOTE | 2017-03-23 09:03 | HHI.CCPN ---
Subjective Remarks/Hospital Course This is a 22yF brought in by EMS for suspected intentional tylenol PM overdose. Unknown time of ingestion. Patient found by EMS in hotel with 120 tylenol PM 500mg tabs missing. She was tachycardic, delirious. GCS 13 on arrival to ER. She was intubated by the emergency department and proceeded with activated charcoal. The patient is intubated and sedated and unable to provide any additional history. Laboratory data is significant for a serum acetaminophen level of 304. 5/2: awake, alert, and following commands. still somewhat somnolent and not breathing over the ventilator. glucose and lfts stable this morning. no family available that we have been able to find. Subjective 03/23: Tmax 99.7. Currently undergoing evaluation by psychiatry. Acetaminophen level is normal limits. AST slightly elevated otherwise liver function is unremarkable. Coags normal. Objective Vital Signs Date Time Temp Pulse Resp B/P Pulse Ox O2 Delivery O2 Flow Rate FiO2 03/23/17 08:10 100 Nasal Cannula 2.00 03/23/17 08:00 99.7 82 14 136/64 03/22/17 12:02 40 Intake and Output 03/22/17 03/22/17 03/23/17 08:00 16:00 00:00 Intake Total 1005 ml 928 ml 770 ml Output Total 250 ml 430 ml 420 ml Balance 755 ml 498 ml 350 ml Result Diagram: 03/23/17 0346 03/23/17 0346 Imaging Last Impressions Chest X-Ray 03/21/17 0000 Signed Impressions: Service Date/Time: Tuesday, March 21, 2017 16:30 - CONCLUSION: Mild left perihilar infiltrate Siva Marcelo MD Objective Remarks GENERAL: 22-year-old AA female, currently resting in bed in no acute distress SKIN: Warm and dry. No rash HEAD: Atraumatic. Normocephalic. EYES: Pupils equal and round about 2-3 mm bilaterally and reactive. No scleral icterus. No injection or drainage. ENT: No nasal bleeding or discharge. Mucous membranes pink and moist. NECK: Trachea midline. No JVD. CARDIOVASCULAR: Regular rate and rhythm. S1, S2. No S4. RESPIRATORY: Clear to auscultation. Breath sounds equal bilaterally. GASTROINTESTINAL: Abdomen soft, non-tender, nondistended. Hepatic and splenic margins not palpable. MUSCULOSKELETAL: Extremities without clubbing, cyanosis, or edema. No obvious deformities. NEUROLOGICAL: Awake and alert. No obvious cranial nerve deficits. Motor grossly within normal limits. Five out of 5 muscle strength in the arms and legs. Normal speech. A/P Assessment and Plan Neuro/Psych: Toxic metabolic Encephalopathy - resolved Intentional acetaminophen overdose with suicidal ideation THC use Evaluation Dr. Thompson/psychiatry Resp: Acute Hypoxic and Hypercarbic Respiratory Failure-resolved Documentation of asthma/mild intermittent Nasal cannula to maintain saturations greater than or equal to 92% Incentive spirometry while awake As needed albuterol therapy CV: Sinus tachycardia- resolved. -- continue telemetry Renal: -- strict q1h uop -- choudhary for accurate I/Os FEN/GI: Acute acetaminophen overdose -- serial LFTs, coags essentially stable -- GI consult appreciated. -- serial tylenol levels from 304 down to 5.1 -- mucomyst IV has been completed -- ICU electrolyte protocol Heme/ID: Microcytic anemia -- serial coags have been normal. Discontinue -- daily cbc Monitor for infection Endo: Discontinue sliding scale insulin as blood sugars within normal limits. Discontinue D10 Prophy: -- SQH -- SCDs Lines: -- piv's Critical Care: The total care time was 35 minutes. Time to perform other separately billable procedures was not included in the critical care time. Patient is stable medically to be discharged or transfer to psych today if indicated Td Larios MD March 23, 2017 09:03
[2017-03-23] MEDS ORDERED: POTASSIUM CHLORIDE 20 MEQ CONTROLLED RELEASE TAB PO ONE (09:15)
--- NOTE | 2017-03-23 09:36 | HHI.DS ---
Discharge Summary Admission Date March 21, 2017 at 15:41 Discharge Date: March 23, 2017 Admitting Diagnosis Tylenol overdose, altered mental status (1) Altered mental status ICD Code: R41.82 Diagnosis: Principal (2) Tylenol overdose ICD Code: T39.1X1A Diagnosis: Principal Procedures Consultation gastroenterology Consultations psychiatry Brief History This is a 22yF brought in by EMS for suspected intentional tylenol PM overdose. Unknown time of ingestion. Patient found by EMS in hotel with 120 tylenol PM 500mg tabs missing. She was tachycardic, delirious. GCS 13 on arrival to ER. She was intubated by the emergency department and proceeded with activated charcoal. The patient is intubated and sedated and unable to provide any additional history. Laboratory data is significant for a serum acetaminophen level of 304. CBC/BMP: 03/23/17 0346 03/23/17 0346 Significant Findings Laboratory Tests Test 03/21/17 03/21/17 03/21/17 03/21/17 14:11 14:35 17:20 20:30 White Blood Count 3.0 TH/MM3 (4.0-11.0) Mean Corpuscular Volume 79.2 FL (80.0-100.0) Mean Corpuscular Hemoglobin 25.7 PG (27.0-34.0) Neutrophils (%) (Auto) 71.1 % (16.0-70.0) Monocytes (%) (Auto) 8.4 % (0.0-8.0) Lymphocytes # (Auto) 0.6 TH/MM3 (1.0-4.8) Chloride Level 111 MEQ/L (98-107) Carbon Dioxide Level 18.2 MEQ/L (21.0-32.0) Blood Urea Nitrogen 5 MG/DL (7-18) Calcium Level 7.7 MG/DL (8.5-10.1) Salicylates Level LESS THAN 1.7 MG/DL (2.8-20.0) Acetaminophen Level 304.0 MCG/ML 115.2 MCG/ML (10.0-30.0) (10.0-30.0) Urine Cannabinoids Screen POS (NEG) Prothrombin Time 13.0 SEC 20.0 SEC (9.8-11.6) (9.8-11.6) Activated Partial 39.9 SEC Thromboplast Time (24.3-30.1) Alkaline Phosphatase 29 U/L (45-117) Total Protein 5.3 GM/DL (6.4-8.2) Albumin 2.4 GM/DL (3.4-5.0) Test 03/22/17 03/22/17 03/22/17 03/22/17 01:04 04:26 11:40 16:23 Prothrombin Time 13.4 SEC 12.7 SEC 12.6 SEC 12.7 SEC (9.8-11.6) (9.8-11.6) (9.8-11.6) (9.8-11.6) Alkaline Phosphatase 42 U/L (45-117) 40 U/L (45-117) 41 U/L (45-117) 43 U/L (45- 117) Ammonia 45 MCMOL/L 37 MCMOL/L (11-32) (11-32) Albumin 3.2 GM/DL 3.0 GM/DL 3.0 GM/DL 3.1 GM/DL (3.4-5.0) (3.4-5.0) (3.4-5.0) (3.4-5.0) Hemoglobin 10.9 GM/DL (11.6-15.3) Hematocrit 32.5 % (35.0-46.0) Mean Corpuscular Volume 77.9 FL (80.0-100.0) Mean Corpuscular Hemoglobin 26.2 PG (27.0-34.0) Potassium Level 2.6 MEQ/L (3.5-5.1) Chloride Level 108 MEQ/L (98-107) Carbon Dioxide Level 20.8 MEQ/L (21.0-32.0) Blood Urea Nitrogen 5 MG/DL (7-18) Calcium Level 7.8 MG/DL (8.5-10.1) Direct Bilirubin 0.3 MG/DL 0.3 MG/DL (0.0-0.2) (0.0-0.2) Total Protein 6.3 GM/DL 6.3 GM/DL (6.4-8.2) (6.4-8.2) Activated Partial 30.4 SEC 52.8 SEC Thromboplast Time (24.3-30.1) (24.3-30.1) Acetaminophen Level 35.1 MCG/ML (10.0-30.0) Aspartate Amino Transf 43 U/L (15-37) (AST/SGOT) Test 03/22/17 03/23/17 21:16 03:46 Prothrombin Time 13.0 SEC 13.1 SEC (9.8-11.6) (9.8-11.6) Activated Partial 47.4 SEC 43.1 SEC Thromboplast Time (24.3-30.1) (24.3-30.1) Direct Bilirubin 0.3 MG/DL (0.0-0.2) Aspartate Amino Transf 43 U/L (15-37) 41 U/L (15-37) (AST/SGOT) Alkaline Phosphatase 42 U/L (45-117) 38 U/L (45-117) Albumin 2.9 GM/DL 2.7 GM/DL (3.4-5.0) (3.4-5.0) Hemoglobin 11.1 GM/DL (11.6-15.3) Hematocrit 33.0 % (35.0-46.0) Mean Corpuscular Volume 78.9 FL (80.0-100.0) Mean Corpuscular Hemoglobin 26.4 PG (27.0-34.0) Potassium Level 3.4 MEQ/L (3.5-5.1) Chloride Level 108 MEQ/L (98-107) Blood Urea Nitrogen 2 MG/DL (7-18) Calcium Level 8.0 MG/DL (8.5-10.1) Total Protein 6.0 GM/DL (6.4-8.2) Acetaminophen Level 5.3 MCG/ML (10.0-30.0) Imaging Last Impressions Chest X-Ray 03/21/17 0000 Signed Impressions: Service Date/Time: Tuesday, March 21, 2017 16:30 - CONCLUSION: Mild left perihilar infiltrate Siva Marcelo MD PE at Discharge GENERAL: 22-year-old AA female, currently resting in bed in no acute distress SKIN: Warm and dry. No rash HEAD: Atraumatic. Normocephalic. EYES: Pupils equal and round about 2-3 mm bilaterally and reactive. No scleral icterus. No injection or drainage. ENT: No nasal bleeding or discharge. Mucous membranes pink and moist. NECK: Trachea midline. No JVD. CARDIOVASCULAR: Regular rate and rhythm. S1, S2. No S4. RESPIRATORY: Clear to auscultation. Breath sounds equal bilaterally. GASTROINTESTINAL: Abdomen soft, non-tender, nondistended. Hepatic and splenic margins not palpable. MUSCULOSKELETAL: Extremities without clubbing, cyanosis, or edema. No obvious deformities. NEUROLOGICAL: Awake and alert. No obvious cranial nerve deficits. Motor grossly within normal limits. Five out of 5 muscle strength in the arms and legs. Normal speech. Transfer Summary Neuro/Psych: Toxic metabolic Encephalopathy - resolved Intentional acetaminophen overdose with suicidal ideation THC use Evaluation Dr. Thompson/psychiatry Resp: Acute Hypoxic and Hypercarbic Respiratory Failure-resolved Documentation of asthma/mild intermittent Nasal cannula to maintain saturations greater than or equal to 92% Incentive spirometry while awake As needed albuterol therapy CV: Sinus tachycardia- resolved. -- continue telemetry Renal: -- strict q1h uop -- choudhary for accurate I/Os FEN/GI: Acute acetaminophen overdose -- serial LFTs, coags essentially stable -- GI consult appreciated. -- serial tylenol levels from 304 down to 5.1 -- mucomyst IV has been completed -- ICU electrolyte protocol Heme/ID: Microcytic anemia -- serial coags have been normal. Discontinue -- daily cbc Monitor for infection Endo: Discontinue sliding scale insulin as blood sugars within normal limits. Discontinue D10 Prophy: -- SQH -- SCDs Lines: -- piv's Critical Care: The total care time was 35 minutes. Time to perform other separately billable procedures was not included in the critical care time. Patient is stable medically to be discharged or transfer to psych today if indicated Hospital Course This is a 22yF brought in by EMS for suspected intentional tylenol PM overdose. Unknown time of ingestion. Patient found by EMS in hotel with 120 tylenol PM 500mg tabs missing. She was tachycardic, delirious. GCS 13 on arrival to ER. She was intubated by the emergency department and proceeded with activated charcoal. The patient is intubated and sedated and unable to provide any additional history. Laboratory data is significant for a serum acetaminophen level of 304. 5/2: awake, alert, and following commands. still somewhat somnolent and not breathing over the ventilator. glucose and lfts stable this morning. no family available that we have been able to find. 5/3: Tmax 99.7. Currently undergoing evaluation by psychiatry. Acetaminophen level is normal limits. AST slightly elevated otherwise liver function is unremarkable. Coags normal. Pt Condition on Discharge: Good Discharge Disposition: Disc to Psych Care Fac Discharge Instructions DIET: Follow Instructions for: As Tolerated, No Restrictions Speech Therapy-Diet Recommends: Regular Activities you can perform: Regular-No Restrictions Td Larios MD March 23, 2017 09:36
[2017-03-23 10:00] VITALS: PULSE 73
[2017-03-23] MEDS ORDERED: SERTRALINE HCL 50 MG TAB PO SCH (10:15)
--- NOTE | 2017-03-23 10:27 | PD.CONS ---
Provisional Diagnosis Admission Date March 21, 2017 at 15:41 [place] I. Major depressive disorder, single episode, severe, without psychosis, cannabis use disorder [place] II. Deferred [place] III. Tylenol overdose [place] IV. Family dynamic conflicts [place] V. 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 Patient found by EMS in hotel with 120 tylenol PM 500mg tabs missing. She was tachycardic, delirious. GCS 13 on arrival to ER. She was intubated by the emergency department and proceeded with activated charcoal. Laboratory data is significant for a serum acetaminophen level of 304. Patient consulted to psychiatry to assess depression and suicidal attempt. On psychiatric evaluation patient is found in the ICU, she seems to be objectively depressed, melancholic, very distant and superficially cooperative with evaluation. Patient explains that yesterday after an argument with his mother in which her mother kicked her out of the house she went to the store, she bought to Tylenol bottles and took them all. She does not elaborate in the details of the moment of the overdose stating that she doesn't remember exactly what she did. She does says that at that moment she wanted to and disappear. Patient says that for the last month she has been feeling depressed , feeling that she is not enough for anybody, abandoned by people she care, feeling that she is worthless, she is not going anywhere, very pessimistic about her future, with poor energy, no enjoying life, no functioning at her expected level, withdrawn from society, frequently sad and crying. She hasn't had any suicidal thoughts until yesterday "when I thought that it was just better to end it all. Patient is tearful and actively crying during interview. She says that her her dream is to be an orthodontics, but she feels frustrated "because I didn't have a car to go to school". Patient denies past or current symptomatology of devendra, visual and auditory hallucinations. He is fully oriented 3, no attention deficit, no delirium, no gross cognitive impairment observed. No agitation, no aggressive behavior, no delusions, no paranoia present. Patient reports occasional use of alcohol, also occasional use of marijuana. Review of Systems Constitutional: DENIES: Diaphoretic episodes, Fatigue, Fever, Weight gain, Weight loss, Chills, Dizziness, Change in appetite, Night Sweats Endocrine: DENIES: Abnorml menstrual pattern, Heat/cold intolerance, Polydipsia , Polyuria, Polyphagia Eyes: DENIES: Blurred vision, Diplopia, Eye inflammation, Eye pain, Vision loss , Photosensitivity, Double Vision Ears, nose, mouth, throat: DENIES: Tinnitus, Hearing loss, Vertigo, Nasal discharge, Oral lesions, Throat pain, Hoarseness, Ear Pain, Running Nose, Epistaxis, Sinus Pain, Toothache, Odynophagia Respiratory: DENIES: Apneas, Cough, Snoring, Wheezing, Hemoptysis, Sputum production, Shortness of breath Gastrointestinal: DENIES: Abdominal pain, Black stools, Bloody stools, Constipation, Diarrhea, Nausea, Vomiting, Difficulty Swallowing, Anorexia Genitourinary: DENIES: Abnormal vaginal bleeding, Dysmenorrhea, Dyspareunia, Sexual dysfunction, Urinary frequency, Urinary incontinence, Urgency, Hematuria , Dysuria, Nocturia, Vaginal discharge Musculoskeletal: DENIES: Joint pain, Muscle aches, Stiffness, Joint Swelling, Back pain, Neck pain Integumentary: DENIES: Abnormal pigmentation, Pruritus, Rash, Nail changes, Breast masses, Breast skin changes, Nipple discharge Hematologic/lymphatic: DENIES: Bruising, Lymphadenopathy Immunologic/allergic: DENIES: Eczema, Urticaria Neurologic: DENIES: Abnormal gait, Headache, Localized weakness, Paresthesias, Seizures, Speech Problems, Tremor, Poor Balance Psychiatric: COMPLAINS OF: Depression, Suicidal Ideation, DENIES: Anxiety, Confusion, Mood changes, Hallucinations, Agitation, Homicidal Ideation, Delusions Past Family Social History Coded Allergies: No Known Allergies (Verified , 08/25/12) Unable to Obtain Active Prescriptions or Reported Meds Current Medications Medications (Trade) Dose Ordered Sig/Ervin Route Start Time Stop Time Status Last Admin (Zoloft) 25 mg DAILY PO 03/23/17 10:15 UNV Family History Patient denies family psychiatric history Social History Patient was born and raised in [place], she lives with her mother, she is 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 2) Patient finished high school, employed, no psychiatric history Physical Exam On physical exam the patient seems to be hypoactive, but no EPS, no stiffness, no tremors, no agitation, withdrawal symptoms present Vital Signs Vital Signs Date Time Temp Pulse Resp B/P Pulse Ox O2 Delivery O2 Flow Rate FiO2 03/23/17 10:00 73 03/23/17 08:10 100 Nasal Cannula 2.00 03/23/17 08:00 99.7 14 136/64 03/22/17 12:02 40 I/O 03/22/17 03/22/17 03/23/17 08:00 16:00 00:00 Intake Total 1005 ml 928 ml 770 ml Output Total 250 ml 430 ml 420 ml Balance 755 ml 498 ml 350 ml Lab Results Toxicology significant for acetaminophen level of 5.3, initially 304. Positive for cannabis WBC 7.7, HBG, 11.1, HCT 33, NA 139, K3.5, BUN 6, creatinine 0.6, AST 41, ALT 34 Mental Status Examination Appearance [id number] woman, age appearing, good hygiene, [facility], distant, guarded, superficially cooperative Speech: Hesitant, Slow Orientation: x3 Memory: Unremarkable Thought Process: Goal Directed, Linear Thought Content: Unremarkable Language Restricted due to the level of hyperactivity/depression Fund of Knowledge Seems to be adequate for the level of education Attention Remarks No attention deficit Suicidal Ideation: Yes (ambivalent, not a specific plan) Previous Suicide Attempts: Yes (overdosing with Tylenol) Homicidal Ideation: No Previous Homicide Attempts: No Judgment: Poor Affect: Other (dysthymic) Affect if Inappropriate: Other (restricted) Mood: Sad Motor Activity: Normal gait Assessment & Plan Problem List: (1) Major depressive disorder Assessment & Plan: 22-year-old woman, without any previous psychiatric history, no previous psychiatric hospitalizations, no previous suicide attempts, no history of self cutting, cannabis use disorder, no significant medical history, who was brought to the hospital after overdosing with Tylenol in the context of argument with her mother. Patient reports about a month of depressive symptoms, consistent him declining in functionality, withdrawal from society, poor energy, low level of concentration, low self esteem, frequent crying spells, increased sensitivity to rejection and frustration the finally led to suicidal ideation and suicide attempt by overdosing. Patient is to be objectively depressed, very melancholic, moodily dysregulated during interview. At this moment patient represents an elevated risk of danger to self and she needs to be hospitalized in psychiatry for stabilization of her mood and for safety. Collateral information from her family still pending. I will start Zoloft 25 mg for depression. Patient can be transferred to psychiatry once medically stable. Continue sitter in the ICU. Brief supportive psychotherapy provided. We'll follow-up in the ICU. Consult appreciated. ICD Code: F32.9 Assessment & Plan Estimated LOS: days Problem Qualifiers (1) Major depressive disorder: Lamine Phan MD March 23, 2017 10:27
--- NOTE | 2017-03-23 13:57 | HHI.GIFU ---
Subjective Remarks PT seen earlier this am. 10am. Extubated. No n/v. No abdominal pain. ( Kathleen aCge) Objective Vitals I&O Vital Signs Date Time Temp Pulse Resp B/P Pulse Ox O2 Delivery O2 Flow Rate FiO2 03/23/17 10:00 73 03/23/17 08:10 100 Nasal Cannula 2.00 03/23/17 08:00 99.7 82 14 136/64 99 03/23/17 08:00 88 03/23/17 04:00 98.2 83 18 129/62 100 03/23/17 00:00 98.4 80 18 147/81 100 03/22/17 21:23 100 Nasal Cannula 2.00 03/22/17 20:00 98.5 74 19 138/66 100 03/22/17 18:11 105 03/22/17 16:00 97.8 101 26 138/79 100 03/22/17 16:00 101 03/22/17 14:15 100 Nasal Cannula 3 03/22/17 14:15 100 Nasal Cannula 3.00 03/22/17 14:00 97 I/O 03/22/17 03/22/17 03/22/17 03/23/17 03/23/17 03/23/17 07:00 15:00 23:00 07:00 15:00 23:00 Intake Total 1005 ml 928 ml 770 ml 652 ml Output Total 250 ml 430 ml 420 ml 425 ml Balance 755 ml 498 ml 350 ml 227 ml Intake Oral 0 ml 240 ml 100 ml IV Total 1005 ml 928 ml 530 ml 552 ml Output Urine Total 250 ml 430 ml 420 ml 425 ml # Bowel Movements 0 0 0 0 Laboratory Laboratory Tests Test 03/22/17 03/22/17 03/23/17 16:23 21:16 03:46 Prothrombin Time 12.7 13.0 13.1 Prothromb Time International 1.1 1.2 1.2 Ratio Activated Partial 52.8 47.4 43.1 Thromboplast Time Total Bilirubin 1.0 1.0 0.9 Direct Bilirubin 0.3 0.3 0.2 Indirect Bilirubin 0.7 0.7 0.7 Aspartate Amino Transf 43 43 41 (AST/SGOT) Alanine Aminotransferase 38 37 34 (ALT/SGPT) Alkaline Phosphatase 43 42 38 Total Protein 6.5 6.5 6.0 Albumin 3.1 2.9 2.7 Acetaminophen Level 19.0 5.3 Potassium Level 3.7 3.4 Iron Level 143 Total Iron Binding Capacity 368 Percent Iron Saturation 38.8 Ferritin 63 White Blood Count 7.7 Red Blood Count 4.18 Hemoglobin 11.1 Hematocrit 33.0 Mean Corpuscular Volume 78.9 Mean Corpuscular Hemoglobin 26.4 Mean Corpuscular Hemoglobin 33.5 Concent Red Cell Distribution Width 13.9 Platelet Count 185 Mean Platelet Volume 8.8 Sodium Level 139 Chloride Level 108 Carbon Dioxide Level 24.7 Anion Gap 6 Blood Urea Nitrogen 2 Creatinine 0.65 Estimat Glomerular Filtration 139 Rate Random Glucose 93 Calcium Level 8.0 Imaging Last Impressions Chest X-Ray 03/21/17 0000 Signed Impressions: Service Date/Time: Tuesday, March 21, 2017 16:30 - CONCLUSION: Mild left perihilar infiltrate Siva Marcelo MD Physical Exam HEENT: Normocephalic; atraumatic; no jaundice. CHEST: CTA, OETT to vent. CARDIAC: RRR ABDOMEN: Soft, very mildly distended, nontender; no hepatosplenomegaly; bowel sounds are present in all four quadrants. EXTREMITIES: No clubbing, cyanosis, or edema. SKIN: Normal; no rash; no jaundice. PEDIATRIC SPEECH LANGUAGE PATHOLOGIST: Lethargic, oriented x 3 (Kathleen Cage) Assessment and Plan Plan ASSESSMENT: - Tylenol Toxicity, SA. Pt found with suicide note and 2 Tylenol PM bottles purchased earlier that am according to receipt, with 76/120 missing from first bottle and none missing from 2nd bottle. Tylenol level 304. S/P Acetylcysteine per protocol. LFT/Coag' s stable. PT 13.1/INR 1.2, T. Bili 0.9, AST 41, ALT 34, Alk Phosph 38. Last Ammonia 16. Seems to be stable at this time. Plan is for her to be transferred to psychiatric unit. Hepatitis panel negative, AFP 1.8, Ferritin 63, Iron Saturation 38.8%. GERARDO/ASMA/AMA, Ceruloplasmin, Alpha 1 Antitrypsin pending. - Encephalopathy secondary to above. Ammonia 16. Lactulose. - Resp. Failure. Pt intubated/mechanical ventilation for airway protection. Per EMR, there is a hx of asthma. PLAN: - JAMES - Await Liver workup- GERARDO, ASMA, AMA, Alpha 1 Antitrypsin, Ceruloplasmin - Monitor LFTs - Notify GI of worsening coagulopathy, rise in LFTs - PT seen and examined by Dr. Hartman and myself and this note is written on his behalf (Kathleen Cage) Physician Comments Seen and examined, extubated. Loking better. Monitor lfts. (Reyna Hartman MD) Kathleen Cage March 23, 2017 13:56 Reyna Hartman MD March 23, 2017 15:47
[2017-03-23 15:19] LABS: ANA SCREEN POS (NEG)
[2017-03-25 15:53] LABS: MITOCHONDRIAL ABS LESS THAN 20.0 U (())
== END 2017-03-23 10:30 | DRG 917 ==
LOC: NEPC 13:48 → NEDA 15:41 → NEDH 19:41 → HIMN 23:40
PROVIDERS: ADMIT Internal Medicine Critical Care Medicine; ATTEND Internal Medicine Critical Care Medicine
PROC: 5A1935Z Respiratory Ventilation, Less than 24 Consecutive Hours (ICD-10-PCS; principal; 2017-03-21)
PROC: 0BH17EZ Insertion of Endotracheal Airway into Trachea, Via Natural or Artificial Opening (ICD-10-PCS; 2017-03-21)
DX: T39.1X2A Poisoning by 4-Aminophenol derivatives, intentional self-harm, initial encounter (principal); G92 Toxic encephalopathy; J96.01 Acute respiratory failure with hypoxia; J96.02 Acute respiratory failure with hypercapnia; F32.2 Major depressive disorder, single episode, severe without psychotic features; D50.9 Iron deficiency anemia, unspecified; D72.819 Decreased white blood cell count, unspecified; T45.0X2A Poisoning by antiallergic and antiemetic drugs, intentional self-harm, initial encounter; R00.0 Tachycardia, unspecified; R40.2411 Glasgow coma scale score 13-15, in the field [EMT or ambulance]; J45.909 Unspecified asthma, uncomplicated; M41.9 Scoliosis, unspecified; F12.90 Cannabis use, unspecified, uncomplicated; Y92.59 Other trade areas as the place of occurrence of the external cause
CPT/HCPCS: 31500; 51702; 71010; 80048; 80053; 80074; 80076; 80307; 82103; 82105; 82140; 82390; 82728; 82948; 83520; 83540; 83550; 84132; 85025; 85027; 85610; 85730; 86038; 86039; 86256; 87641; 93005; 94002; 94003; 94150; 94640; 94664; 94667; 94668; 96360; 96365; J0132; J0330; J1644; J2250; J2405; J3010; J3480; J7030; J7060; J7070

== ENCOUNTER 2017-03-23 10:44 | Inpatient (IN) | payer OTHER ==
[~2017-03-23] VITALS: Ht 162.6 cm; Wt 49.0 kg
[2017-03-23] MEDS ORDERED: MAGNESIUM HYDROXIDE SUSP 30 ML CUP PO PRN (11:45)
[2017-03-23] MEDS ORDERED: ALUMINUM/MAGNESIUM/SIMETH 30 ML CUP PO PRN (11:45)
[2017-03-23] MEDS ORDERED: LORazepam 0.5 MG TAB PO PRN (11:45)
[2017-03-23] MEDS ORDERED: ACETAMINOPHEN 325 MG TAB PO PRN (11:45)
[2017-03-23] MEDS ORDERED: LORazepam 2 MG/ML VIAL IM PRN ×2 (11:45)
[2017-03-23] MEDS ORDERED: LORazepam 1 MG TAB PO PRN (11:45)
[2017-03-23 12:38] VITALS: BP 135/81; PULSE 92; RESP 16; TEMP 99.1
[2017-03-23 17:56] VITALS: BP 121/66; PULSE 90; RESP 16; TEMP 99.3; O2SAT 100
[2017-03-24 06:08] VITALS: BP 121/67; PULSE 94; RESP 16; TEMP 99.1; O2SAT 97
[2017-03-24] MEDS: SERTRALINE HCL 50 MG TAB PO SCH (09:05)
--- NOTE | 2017-03-24 10:39 | HHI.HP ---
Provisional Diagnosis Admission Date March 23, 2017 at 10:44 [place] I. Adjustment disorder with mixed disturbance of emotions and conduct Certification of Person's Competence To Provide Express and Informed Consent I have personally examined Billie Arguelles , a person being served at [facility] on, March 24, 2017 10:33. Express and informed consent means consent voluntarily given in writing, by a competent person, after sufficient explanation and disclosure of the subject matter involved to enable the person to make a knowing and willful decision without any element of force, fraud, deceit, duress, or other form of constraint or coercion. This person is 18 years of age or older, is not now known to be incompetent to consent to treatment with a guardian advocate, and does not have a health care surrogate or proxy currently making medical treatment decisions. I have found this person to be one of the following: [X] Competent to provide express and informed consent, as defined above, for voluntary admission to this facility and is competent to provide express and informed consent for treatment. He/she has the consistent capacity to make well reasoned, willful, and knowing decisions concerning his or her medical or mental health treatment. The person fully and consistently understands the purpose of the admission for examination/placement and is fully capable of personally exercising all rights [place] Incompetent to provide express and informed consent to voluntary admission, and this is incompetent to provide express and informed consent to treatment. The person must be transferred to involuntary status and a petition for a guardian advocate filed with the Circuit Court. [] Refusing to provide express and informed consent to voluntary admission but is competent to provide express and informed consent for treatment. The person must be discharged or transferred to involuntary status. Form shall be completed within 24 hours of a person's arrival at the receiving facility and filed in the clinical record of each person: 1. Admitted on a voluntary basis 2. Permitted to provide express and informed consent to his/her own treatment 3. Allowed to transfer from involuntary to voluntary status 4. Prior to permitting a person to consent to his or her own treatment after having been previously found incompetent to consent to treatment. History of Present Illness Capacity: Has Capacity HPI This is a 22-year-old female who got into a argument with her mother and her mother told her to leave the house. The patient describes she was "at a loss" and did not know what to do. She states her mother is her best friend. When her mother asked her to leave, the patient overdosed on an unknown number of Tylenol capsules. The patient does admit she had approximately 5 drinks and smoked marijuana prior to this altercation with her mother and the patient believes she provoked and escalated this altercation. At the present time the patient denies being suicidal or homicidal. She has no psychotic symptoms. She denies symptoms of depression. 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 She is calm and pleasant and cooperative. Review of Systems ROS Limitations: Clinical Condition Past Psych History Psychological trauma history Denied Violence risk - others (6 mos) Minimal Violence risk - self (6 mos) Minimal to moderate. The patient explains she has "learned her lesson". Substance Abuse History Drugs/Alcohol past 12 months Patient recognizes she consumed too much alcohol prior to this overdose and that her use of marijuana contributed to her behavior. Past Family Social History Coded Allergies: No Known Allergies (Verified , 08/25/12) Unable to Obtain Active Prescriptions or Reported Meds Current Medications Medications (Trade) Dose Ordered Sig/Ervin Route Start Time Stop Time Status Last Admin (Ativan) 1 mg Q6H PRN PO 03/23/17 11:45 (Ativan Inj) 1 mg Q6H PRN IM 03/23/17 11:45 (Tylenol) 650 mg Q4H PRN PO 03/23/17 11:45 (Milk Of Magnesia Liq) 30 ml DAILY PRN PO 03/23/17 11:45 (Mag-Al Plus Susp Liq) 30 ml Q6H PRN PO 03/23/17 11:45 (Zoloft) 25 mg DAILY PO 03/24/17 09:00 03/24/17 09:05 Family History Positive for mood disorders. Social History Lives with her mother, stepfather and 2 younger siblings. Describes a good relationship with her entire family currently employed but not in school. Plans to return to school. Patient's Strengths (min. 2) Verbal and has significant family support. Physical Exam GENERAL: SKIN: Warm and dry. HEAD: Normocephalic. EYES: No scleral icterus. No injection or drainage. NECK: Supple, trachea midline. No JVD or lymphadenopathy. CARDIOVASCULAR: Regular rate and rhythm without murmurs, gallops, or rubs. RESPIRATORY: Breath sounds equal bilaterally. No accessory muscle use. GASTROINTESTINAL: Abdomen soft, non-tender, nondistended. MUSCULOSKELETAL: No cyanosis, or edema. BACK: Nontender without obvious deformity. No CVA tenderness. Vital Signs Vital Signs Date Time Temp Pulse Resp B/P Pulse Ox O2 Delivery O2 Flow Rate FiO2 03/24/17 06:08 99.1 94 16 121/67 97 Mental Status Examination Speech: Unremarkable Orientation: x3 Memory: Unremarkable Thought Process: Organized, Goal Directed Thought Content: Unremarkable Hallucination Type: None Attention and Concentration: Good Suicidal Ideation: No Previous Suicide Attempts: Yes (overdosing with Tylenol) Homicidal Ideation: No Previous Homicide Attempts: No Insight: Fair Judgment: Unrealistic Affect: Good Mood: Appropriate Motor Activity: Normal gait Assessment & Plan Problem List: (1) Adjustment disorder with mixed disturbance of emotions and conduct ICD Code: F43.25 Assessment & Plan Estimated LOS: 1-2 days patient will be observed and evaluated for symptoms of depression and suicidality. If she would like to start an antidepressant, this physician will prescribe 1. However this physician also believes there should be family therapy and will ask the board setter to arrange a meeting prior to discharge. Patient is at far less risk for harm to self now that she is no longer intoxicated. Randy Angulo MD March 24, 2017 10:39
[2017-03-24 20:15] VITALS: BP 144/75; PULSE 91; RESP 17; TEMP 99.2
[2017-03-25 06:22] VITALS: BP 122/75; PULSE 82; RESP 16; TEMP 97.2; O2SAT 97
[2017-03-25] MEDS: SERTRALINE HCL 50 MG TAB PO SCH (08:52)
--- NOTE | 2017-03-25 10:13 | HHI.DS ---
Psychiatry Discharge Summary Inpatient Psychiatric care?: Yes Advance Directive: No Reason Not Provided: Due to Patient Condition Mental Health AdvanceDirective: No Health Care Proxy: No Admission Admission Date March 23, 2017 at 10:44 Admission Diagnosis: (1) Adjustment disorder with mixed disturbance of emotions and conduct ICD Code: F43.25 Brief History This is a 22-year-old female who got into a argument with her mother and her mother told her to leave the house. The patient describes she was "at a loss" and did not know what to do. She states her mother is her best friend. When her mother asked her to leave, the patient overdosed on an unknown number of Tylenol capsules. The patient does admit she had approximately 5 drinks and smoked marijuana prior to this altercation with her mother and the patient believes she provoked and escalated this altercation. At the present time the patient denies being suicidal or homicidal. She has no psychotic symptoms. She denies symptoms of depression. 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 She is calm and pleasant and cooperative. Tobacco Use In Past 30 Days: No Tobacco Past 30 Days Alcohol Use: Monthly or Less Hospital Course Patient did well during this brief hospitalization. Throughout the course of the hospitalization she denied suicidal or homicidal ideation, plan or intent. She admitted to becoming upset prior to her admission and saying the wrong thing. Here in the hospital she participated actively in individual and group therapies. No procedures were performed. She was offered antidepressant medication. Results Blood Pressure 122 / 75 Vital Signs Date Time Temp Pulse Resp B/P Pulse Ox O2 Delivery O2 Flow Rate FiO2 03/25/17 06:22 97.2 82 16 122/75 97 None pending Summary of Procedures None Pending results at discharge: No Medications # of Antipsychotic meds at D/C: 0 Approp Antipsych med options 1 - Minimum of three failed multiple trials of monotherapy. 2 - Documented plan to taper to monotherapy due to previous use of multiple meds OR cross-taper in progress at D/C. 3 - Documentation of augmentation of Clozapine. 4 - Justification other than those listed in allowable values 1-3, document here : Discharge Discharge Date: March 25, 2017 Discharge Diagnosis: (1) Adjustment disorder with mixed disturbance of emotions and conduct Diagnosis: Principal ICD Code: F43.25 Mental Status Exam at Disch No suicidal or homicidal ideation, plan or intention. No psychotic symptoms. Cognition intact and baseline. He should verbally rodríguez for safety. Pt Condition on Discharge: Stable Discharge Disposition: Discharge Home Discharge Instructions Diet Instructions: As Tolerated, No Restrictions Activities you can perform: Regular-No Restrictions Scheduled Appointment: [facility] Appointment Date: March 28, 2017 Appointment Time: 10:00am Discharge Time <= 30 minutes Discharge/Advance Care Plan Health Problems: (1) Adjustment disorder with mixed disturbance of emotions and conduct Goals to promote your health * To prevent worsening of your condition and complications * To maintain your health at the optimal level Directions to meet your goals Take your medications as prescribed Follow your dietary instruction Follow activity as directed Keep your appointments as scheduled Take your immunizations and boosters as scheduled If your symptoms worsen call your PCP, if no PCP go to Urgent Care Center or Emergency Room For / questions related to your inpatient stay or results of tests pending at discharge, please contact Dr. Randy Angulo at Smoking is Dangerous to Your Health. Avoid second hand smoking Randy Angulo MD March 25, 2017 10:13
[2017-03-25] MEDS ORDERED: ZOLO50TA PO (10:14)
== END 2017-03-25 10:25 | disposition home or self-care (01) | DRG 882 ==
LOC: H260 10:44
PROVIDERS: ADMIT Psychiatry & Neurology Psychiatry; ATTEND Psychiatry & Neurology Psychiatry
DX: F43.25 Adjustment disorder with mixed disturbance of emotions and conduct (principal); F12.90 Cannabis use, unspecified, uncomplicated; T39.1X2A Poisoning by 4-Aminophenol derivatives, intentional self-harm, initial encounter; Y92.9 Unspecified place or not applicable

== ENCOUNTER 2017-12-15 09:44 | Emergency (ER) | payer OTHER ==
[~2017-12-15] VITALS: Ht 162.6 cm; Wt 51.0 kg
[~2017-12-15 09:44] MED LIST changes: +PREN1CAP18 PO; +PREN1CAP20 PO; -Z.0.NO CURRENT MEDS; +ZITH1POW PO
[2017-12-15 10:04] VITALS: BP 128/63; PULSE 100; RESP 16; TEMP 98.2; O2SAT 99
--- NOTE | 2017-12-15 11:37 | PD ---
HPI Chief Complaint: Cold / Flu Symptoms Time Seen by Provider: 10:53 Travel History International Travel<30 days: No Contact w/Intl Traveler<30days: No Traveled to known affect area: No History of Present Illness HPI 22-year-old female here with mild cough/cold flulike illness. She reports mild body aches, cough 2 days. She reports possible exposure to flu by coworkers. She is currently 18 weeks . She denies abdominal pain, vaginal bleeding , vaginal discharge. Symptom severity is mild to moderate. No aggravating or alleviating factors. PFSH Past Medical History Asthma: Yes Cardiovascular Problems: No Diminished Hearing: No Gastrointestinal Disorders: No Genitourinary: No Musculoskeletal: Yes (scoliosis) Neurologic: No Psychiatric: No Respiratory: Yes Immunizations Current: Yes Sickle Cell Disease: No Tetanus Vaccination: Unknown ?: LMP: 18 WEEKS : 1 Past Surgical History Other Surgery: No Social History Alcohol Use: No (UNABLE TO ASSESS) Tobacco Use: No Substance Use: No Allergies-Medications (Allergen,Severity, Reaction): Coded Allergies: No Known Allergies (Verified Adverse Reaction, Unknown, 12/15/17) Reported Meds & Prescriptions Reported Meds & Active Scripts Active Prenate Mini 18-0.6-0.4-350 mg ( W/O Vit A W/ Fe Carbo) 18 Mg Iron-1 Mg- 350 Mg Cap 1 Caplet PO DAILY 30 Days Calcium Pnv 28-1-250 mg ( Without Vit A W/ Fe F) 28 Mg-1 Mg-250 Mg Cap 1 Caplet PO CONTINUOUS 30 Days Review of Systems Except as stated in HPI: all other systems reviewed are Neg General / Constitutional: Positive: Fever Eyes: No: Visual changes HENT: No: Headaches Cardiovascular: No: Chest Pain or Discomfort Respiratory: Positive: Cough Gastrointestinal: No: Abdominal Pain Genitourinary: No: Dysuria Musculoskeletal: Positive: Myalgias Skin: No Rash Physical Exam Narrative GENERAL: Alert and well-appearing 22-year-old female. Nontoxic appearing. SKIN: Warm and dry. No rash. HEAD: Atraumatic. Normocephalic. EYES: Pupils equal and round. No scleral icterus. No injection or drainage. ENT: No nasal bleeding or discharge. Mucous membranes pink and moist. No pharyngeal erythema, tonsillar hypertrophy or exudate. NECK: Trachea midline. No JVD. No meningismus. CARDIOVASCULAR: Regular rate and rhythm. RESPIRATORY: No accessory muscle use. Clear to auscultation. Breath sounds equal bilaterally. No wheezing, rales, rhonchi. GASTROINTESTINAL: Abdomen soft, non-tender, nondistended. MUSCULOSKELETAL: Extremities without clubbing, cyanosis, or edema. No obvious deformities. NEUROLOGICAL: Awake and alert. No obvious cranial nerve deficits. Normal speech. PSYCHIATRIC: Appropriate mood and affect; insight and judgment normal. Data Data Last Documented VS Vital Signs Date Time Temp Pulse Resp B/P (MAP) Pulse Ox O2 Delivery O2 Flow Rate FiO2 12/15/17 10:04 98.2 100 16 128/63 (84) 99 Orders Orders Influenzae A/B Antigen (12/15/17 11:03) [facility] Medical Decision Making Medical Screen Exam Complete: Yes Emergency Medical Condition: Yes Differential Diagnosis Influenza, URI, bronchitis Narrative Course 22-year-old female here with mild viral-like illness. She is nontoxic appearing. Vital signs are stable. She appears well-hydrated. Abdomen is soft and nontender. Influenza is negative. This was discussed with patient and family. She was instructed to continue Tylenol. Increase fluids. Rest. Follow-up with [facility] [employer] as scheduled. Return to emergency department if she develops new or worsening symptoms. Diagnosis Primary Impression: Viral illness Referrals: Manager [facility] Additional Instructions: influenza screening was negative. Take [id number] Tylenol as needed for fever and body aches. Treatment plenty of fluids such as water and Gatorade. Rest. Follow-up with her [facility] [employer]. Return if he developed new or worsening symptoms Disposition: 01 DISCHARGE HOME Condition: Stable Yamel Donis Dec 15, 2017 11:37
== END 2017-12-15 12:01 | disposition home or self-care (01) ==
LOC: PHEFT 09:44
DX: O26.892 Other specified pregnancy related conditions, second trimester (principal); B34.9 Viral infection, unspecified; R05 Cough; M79.1 Myalgia; Z87.09 Personal history of other diseases of the respiratory system; Z87.39 Personal history of other diseases of the musculoskeletal system and connective tissue; Z3A.18 18 weeks gestation of pregnancy
CPT/HCPCS: 87804; 99283

== ENCOUNTER → 2018-01-26 | Outpatient (CLI) | payer OTHER ==
[~2018-01-26] MED LIST changes: -ZITH1POW PO
== END ==
LOC: HPND 08:48
PROVIDERS: ATTEND Obstetrics & Gynecology
DX: O26.872 Cervical shortening, second trimester (principal)
CPT/HCPCS: 76816; 76817

== ENCOUNTER 2018-04-18 22:34 | Inpatient (IN) | payer OTHER, MEDICAID ==
[~2018-04-18] VITALS: Ht 162.6 cm; Wt 63.0 kg
[2018-04-18] MEDS ORDERED: NIFEdipine 10 MG CAP ONE ×2 (23:16→23:45)
[2018-04-18 23:29] LABS: AUTOMATED NEUTROPHIL # 5.3 TH/MM3 (1.8-7.7); BASOPHIL % 0.5 % (0.0-2.0); EOSINOPHIL # 0.1 TH/MM3 (0-0.4); EOSINOPHIL % 1.6 % (0.0-4.0); HEMATOCRIT 36.1 % (35.0-46.0); HEMOGLOBIN 11.6 GM/DL (11.6-15.3); LYMPH % 20.4 % (9.0-44.0); LYMPHOCYTE # 1.6 TH/MM3 (1.0-4.8); MEAN CELL VOLUME 76.9 FL (80.0-100.0); MEAN CORPUSCULAR HEMOGLOBIN 24.8 PG (27.0-34.0); MEAN CORPUSCULAR HGB CONC 32.3 % (32.0-36.0); MEAN PLATELET VOLUME 10.2 FL (7.0-11.0); MONO % 8.4 % (0.0-8.0); MONOCYTE # 0.6 TH/MM3 (0-0.9); NEUT % 69.1 % (16.0-70.0); PLATELET COUNT 188 TH/MM3 (150-450); RED BLOOD COUNT 4.69 MIL/MM3 (4.00-5.30); RED CELL DISTRIBUTION WIDTH 12.9 % (11.6-17.2); WHITE BLOOD COUNT 7.6 TH/MM3 (4.0-11.0)
[2018-04-18 23:42] LABS: BACTERIA, URINE OCC /hpf; BILIRUBIN, URINE NEG (NEG); BLOOD, URINE NEG (NEG); GLUCOSE,URINE NEG (NEG); KETONE, URINE 10 mg/dL (NEG); NITRITE,URINE NEG (NEG); PH, URINE 6.5 (5.0-8.5); RENAL EPITHELIAL CELLS <1 /hpf; SQUAMOUS EPITHELIAL CELL URINE 7 /hpf (0-5); URINE COLOR LIGHT-YELLOW (YELLW/STRAW); URINE LEUKOCYTE ESTERASE SMALL (NEG)
[2018-04-18 23:45] LABS: ALBUMIN 2.7 GM/DL (3.4-5.0); ALT (GPT) 14 U/L (10-53); AST (GOT) 12 U/L (15-37); BICARBONATE 23.2 MEQ/L (21.0-32.0); BLOOD UREA NITROGEN 6 MG/DL (7-18); CALCIUM 8.1 MG/DL (8.5-10.1); CHLORIDE 107 MEQ/L (98-107); CREATININE 0.79 MG/DL (0.50-1.00); GLOMERULAR FILTRATION RATE 110 ML/MIN (>89); GLUCOSE,RANDOM 71 MG/DL (74-106); SODIUM (NA) 141 MEQ/L (136-145)
[2018-04-18 23:48] LABS: ALKALINE PHOSPHATASE 310 U/L (45-117); TOTAL BILIRUBIN ADULT 0.3 MG/DL (0.2-1.0); TOTAL PROTEIN 7.4 GM/DL (6.4-8.2)
[2018-04-19] MEDS ORDERED: BETAMETHASONE SOD PHOS/ACETATE SUSP 30 MG/5 ML VIAL IM SCH
--- NOTE | 2018-04-19 01:18 | PD ---
HPI Chief Complaint ctxs Date Seen: April 19, 2018 Time Seen: 01:08 Travel History International Travel<30 Days: No Contact w/Intl Traveler<30Days: No Known Affected Area: No History of Present Illness HPI pt. is a 23 y/o @ 36 2/7 weeks present w/ ctxs. pt. states been having ctxs since earlier in day and have increased in intensity and freq. +FM, no lof , no vb/lof. pt. also noted to have increased bp 160's/115's on present. pt. given nifedipine w/ some decrease in bp. pt. also have increased spot pr/cr. denies palm/visual changes, cp/sob, n/v, voiding w/o diff. Weeks Gestation: 36 Para: 0 : 1 Last Menstrual Period: April 19, 2018 History Past Medical History Medical History: Denies Significant Hx Obstetric History Obstetric History Past Surgical History Surgical History: No Previous Surgery Family History Family History: Negative Social History Alcohol Use: No Tobacco Use: No Substance Abuse: No Allergies-Medications (Allergen,Severity, Reaction): Coded Allergies: No Known Allergies (Verified Adverse Reaction, Unknown, 12/19/17) Home Meds Active Scripts W/O Vit A W/ Fe Carbo (Prenate Mini 18-0.6-0.4-350 mg) 18 Mg Iron-1 Mg- 350 Mg Cap, 1 CAPLET PO DAILY for 30 Days, #30 CAPLET 4 Refills Prov:Marina Ahn CNM [facility] 11/18/17 Without Vit A W/ Fe F (Calcium Pnv 28-1-250 mg) 28 Mg-1 Mg-250 Mg Cap, 1 CAPLET PO CONTINUOUS for 30 Days, #30 CAPLET 11 Refills Prov:Mercedes Romero [facility] 11/16/17 Review of Systems Except as stated in HPI: all other systems reviewed are Neg Physical Exam Narrative GENERAL: Well-nourished, well-developed patient. SKIN: Warm and dry. HEAD: Normocephalic and atraumatic. EYES: No scleral icterus. No injection or drainage. ENT: No nasal drainage noted. Mucous membranes pink. Airway patent. NECK: Supple, trachea midline. No JVD. CARDIOVASCULAR: Regular rate and rhythm without murmurs, gallops, or rubs. RESPIRATORY: Breath sounds equal bilaterally. No accessory muscle use. BREASTS: Bilateral exam showed no masses , no retractions, no nipple discharge. ABDOMEN/GI: Abdomen soft, non-tender, bowel sounds present, no rebound, no guarding Gravid GENITOURINARY: External Genitalia: intact and normal in appearance Cervix: mid Dilatation: 2 Effacement: 80 Station: -1 Presentation: cephalic Membranes: intact, bulging membranes Uterine Contractions: irreg FHT's: Category: 1 Reactive: + Variability:mod EXTREMITIES: No cyanosis or edema. BACK: Nontender without obvious deformity. No CVA tenderness. NEUROLOGICAL: Awake and alert. Motor and sensory grossly within normal limits. Five out of 5 muscle strength in all muscle groups. Normal speech. Data Data Vital Signs Reviewed: Yes Orders Orders Complete Blood Count With Diff (04/18/18 23:13) Comprehensive Metabolic Panel (04/18/18 23:13) Urinalysis - C+S If Indicated (04/18/18 23:13) Ob/Psych Drug Screen, Urine (04/18/18 23:13) Type And Screen (04/18/18 23:13) Nifedipine (Procardia) (04/18/18 23:16) Uric Acid (04/18/18 23:00) Nifedipine (Procardia) (04/18/18 23:45) Protein Creat Ratio, Random Ur (04/18/18 23:51) Betamethasone Inj (Celestone Soluspan In (04/19/18 00:00) Ob (2e) Additional Admit Info (04/19/18 01:03) Labs Laboratory Tests Test 04/18/18 23:00 White Blood Count 7.6 Red Blood Count 4.69 Hemoglobin 11.6 Hematocrit 36.1 Mean Corpuscular Volume 76.9 Mean Corpuscular Hemoglobin 24.8 Mean Corpuscular Hemoglobin Concent 32.3 Red Cell Distribution Width 12.9 Platelet Count 188 Mean Platelet Volume 10.2 Neutrophils (%) (Auto) 69.1 Lymphocytes (%) (Auto) 20.4 Monocytes (%) (Auto) 8.4 Eosinophils (%) (Auto) 1.6 Basophils (%) (Auto) 0.5 Neutrophils # (Auto) 5.3 Lymphocytes # (Auto) 1.6 Monocytes # (Auto) 0.6 Eosinophils # (Auto) 0.1 Basophils # (Auto) 0.0 CBC Comment DIFF FINAL Differential Comment Urine Color LIGHT-YELLOW Urine Turbidity HAZY Urine pH 6.5 Urine Specific [place] 1.008 Urine Protein 30 Urine Glucose (UA) NEG Urine Ketones 10 Urine Occult Blood NEG Urine Nitrite NEG Urine Bilirubin NEG Urine Urobilinogen LESS THAN 2.0 Urine Leukocyte Esterase SMALL Urine RBC 1 Urine WBC 4 Urine Squamous Epithelial Cells 7 Urine Renal Epithelial Cells <1 Urine Bacteria OCC Microscopic Urinalysis Comment CULT NOT INDICATED Urine Random Creatinine 66 Urine Random Total Protein 75 Urine Protein/Creatinine Ratio 1.14 Blood Urea Nitrogen 6 Creatinine 0.79 Random Glucose 71 Total Protein 7.4 Albumin 2.7 Calcium Level 8.1 Uric Acid 5.9 Alkaline Phosphatase 310 Aspartate Amino Transf (AST/SGOT) 12 Alanine Aminotransferase (ALT/SGPT) 14 Total Bilirubin 0.3 Sodium Level 141 Potassium Level 4.3 Chloride Level 107 Carbon Dioxide Level 23.2 Anion Gap 11 Estimat Glomerular Filtration Rate 110 Urine Opiates Screen NEG Urine Barbiturates Screen NEG Urine Amphetamines Screen NEG Urine Benzodiazepines Screen NEG Urine Cocaine Screen NEG Urine Cannabinoids Screen NEG [facility] Medical Record Reviewed: Yes Plan pt. w/ preeclampsia and labor. condition d/w pt. pt. to be admitted and have iol. fentanyl vs epidural. pt. receive 1 dose betamethasone. Diagnosis Diagnosis: Primary Impression: Active labor Additional Impressions: Preeclampsia 36 weeks gestation of Jonathan Hernandes Jr., MD April 19, 2018 01:18
--- NOTE | 2018-04-19 01:22 | HHI.HP ---
History & Physical H&P HPI Chief Complaint ctxs Date Seen: April 19, 2018 Time Seen: 01:08 Travel History International Travel<30 Days: No Contact w/Intl Traveler<30Days: No Known Affected Area: No History of Present Illness HPI pt. is a 23 y/o @ 36 2/7 weeks present w/ ctxs. pt. states been having ctxs since earlier in day and have increased in intensity and freq. +FM, no lof , no vb/lof. pt. also noted to have increased bp 160's/115's on present. pt. given nifedipine w/ some decrease in bp. pt. also have increased spot pr/cr. denies palm/visual changes, cp/sob, n/v, voiding w/o diff. Weeks Gestation: 36 Para: 0 : 1 Last Menstrual Period: April 19, 2018 History (Limited) History Past Medical History Medical History: Denies Significant Hx Obstetric History Obstetric History Past Surgical History Surgical History: No Previous Surgery Family History Family History: Negative Social History Alcohol Use: No Tobacco Use: No Substance Abuse: No Allergies-Medications Allergies-Medications (Allergen,Severity, Reaction): Coded Allergies: No Known Allergies (Verified Adverse Reaction, Unknown, 12/19/17) Home Meds Active Scripts W/O Vit A W/ Fe Carbo (Prenate Mini 18-0.6-0.4-350 mg) 18 Mg Iron-1 Mg- 350 Mg Cap, 1 CAPLET PO DAILY for 30 Days, #30 CAPLET 4 Refills Prov:Marina Ahn CNM [facility] 11/18/17 Without Vit A W/ Fe F (Calcium Pnv 28-1-250 mg) 28 Mg-1 Mg-250 Mg Cap, 1 CAPLET PO CONTINUOUS for 30 Days, #30 CAPLET 11 Refills Prov:Mercedes Romero [facility] 11/16/17 ROS Review of Systems Except as stated in HPI: all other systems reviewed are Neg Physical Exam Physical Exam Narrative GENERAL: Well-nourished, well-developed patient. SKIN: Warm and dry. HEAD: Normocephalic and atraumatic. EYES: No scleral icterus. No injection or drainage. ENT: No nasal drainage noted. Mucous membranes pink. Airway patent. NECK: Supple, trachea midline. No JVD. CARDIOVASCULAR: Regular rate and rhythm without murmurs, gallops, or rubs. RESPIRATORY: Breath sounds equal bilaterally. No accessory muscle use. BREASTS: Bilateral exam showed no masses , no retractions, no nipple discharge. ABDOMEN/GI: Abdomen soft, non-tender, bowel sounds present, no rebound, no guarding Gravid GENITOURINARY: External Genitalia: intact and normal in appearance Cervix: mid Dilatation: 2 Effacement: 80 Station: -1 Presentation: cephalic Membranes: intact, bulging membranes Uterine Contractions: irreg FHT's: Category: 1 Reactive: + Variability:mod EXTREMITIES: No cyanosis or edema. BACK: Nontender without obvious deformity. No CVA tenderness. NEUROLOGICAL: Awake and alert. Motor and sensory grossly within normal limits. Five out of 5 muscle strength in all muscle groups. Normal speech. Data Data Data Vital Signs Reviewed: Yes Orders Orders Complete Blood Count With Diff (04/18/18 23:13) Comprehensive Metabolic Panel (04/18/18 23:13) Urinalysis - C+S If Indicated (04/18/18 23:13) Ob/Psych Drug Screen, Urine (04/18/18 23:13) Type And Screen (04/18/18 23:13) Nifedipine (Procardia) (04/18/18 23:16) Uric Acid (04/18/18 23:00) Nifedipine (Procardia) (04/18/18 23:45) Protein Creat Ratio, Random Ur (04/18/18 23:51) Betamethasone Inj (Celestone Soluspan In (04/19/18 00:00) Ob (2e) Additional Admit Info (04/19/18 01:03) Labs Laboratory Tests Test 04/18/18 23:00 White Blood Count 7.6 Red Blood Count 4.69 Hemoglobin 11.6 Hematocrit 36.1 Mean Corpuscular Volume 76.9 Mean Corpuscular Hemoglobin 24.8 Mean Corpuscular Hemoglobin Concent 32.3 Red Cell Distribution Width 12.9 Platelet Count 188 Mean Platelet Volume 10.2 Neutrophils (%) (Auto) 69.1 Lymphocytes (%) (Auto) 20.4 Monocytes (%) (Auto) 8.4 Eosinophils (%) (Auto) 1.6 Basophils (%) (Auto) 0.5 Neutrophils # (Auto) 5.3 Lymphocytes # (Auto) 1.6 Monocytes # (Auto) 0.6 Eosinophils # (Auto) 0.1 Basophils # (Auto) 0.0 CBC Comment DIFF FINAL Differential Comment Urine Color LIGHT-YELLOW Urine Turbidity HAZY Urine pH 6.5 Urine Specific [place] 1.008 Urine Protein 30 Urine Glucose (UA) NEG Urine Ketones 10 Urine Occult Blood NEG Urine Nitrite NEG Urine Bilirubin NEG Urine Urobilinogen LESS THAN 2.0 Urine Leukocyte Esterase SMALL Urine RBC 1 Urine WBC 4 Urine Squamous Epithelial Cells 7 Urine Renal Epithelial Cells <1 Urine Bacteria OCC Microscopic Urinalysis Comment CULT NOT INDICATED Urine Random Creatinine 66 Urine Random Total Protein 75 Urine Protein/Creatinine Ratio 1.14 Blood Urea Nitrogen 6 Creatinine 0.79 Random Glucose 71 Total Protein 7.4 Albumin 2.7 Calcium Level 8.1 Uric Acid 5.9 Alkaline Phosphatase 310 Aspartate Amino Transf (AST/SGOT) 12 Alanine Aminotransferase (ALT/SGPT) 14 Total Bilirubin 0.3 Sodium Level 141 Potassium Level 4.3 Chloride Level 107 Carbon Dioxide Level 23.2 Anion Gap 11 Estimat Glomerular Filtration Rate 110 Urine Opiates Screen NEG Urine Barbiturates Screen NEG Urine Amphetamines Screen NEG Urine Benzodiazepines Screen NEG Urine Cocaine Screen NEG Urine Cannabinoids Screen NEG MDM MDM Medical Record Reviewed: Yes Plan pt. w/ preeclampsia and labor. condition d/w pt. pt. to be admitted and have iol. fentanyl vs epidural. pt. receive 1 dose betamethasone. Diagnosis Diagnosis: Primary Impression: Active labor Additional Impressions: Preeclampsia 36 weeks gestation of Jonathan Hernandes Jr., MD April 19, 2018 01:22
[2018-04-19] MEDS: LACTATED RINGER'S 1000 ML INJ 1,000 ML IV SCH ×2 (01:23→10:35)
[2018-04-19] MEDS ORDERED: CALCIUM GLUCONATE 10% 1 GM/10 ML VIAL IV PUSH PRN (01:30)
[2018-04-19] MEDS ORDERED: LABETALOL HCL 100 MG/20 ML VIAL IV PUSH PRN ×6 (01:30→10:15)
[2018-04-19] MEDS ORDERED: SODIUM CHLORIDE 0.9% FLUSH 10 ML FLUSH IV FLUSH PRN ×2 (01:30→15:00)
[2018-04-19] MEDS ORDERED: MAGNESIUM SULFATE 4 GM PREMIX 100 ML IV ONE (05:00)
[2018-04-19] MEDS: MAGNESIUM SULFATE 40 GM PREMIX 1,000 ML IV SCH (05:00)
[2018-04-19] MEDS ORDERED: ACETAMINOPHEN 325 MG TAB PO PRN ×2 (05:30→15:00)
[2018-04-19] MEDS ORDERED: PENICILLIN G POTASSIUM INJ 5,000,000 UNITS in SODIUM CHLORIDE 0.9% INJ 100 ML IV ONE (08:15)
[2018-04-19] MEDS ORDERED: MISOPROSTOL 25 MCG TAB PO SCH (08:15)
[2018-04-19] MEDS: SODIUM CHLORIDE 0.9% FLUSH 10 ML FLUSH IV FLUSH SCH ×2 (09:00→21:00)
[2018-04-19] MEDS ORDERED: ONDANSETRON HCL 4 MG/2 ML VIAL IV PUSH PRN (10:15)
[2018-04-19] MEDS ORDERED: LIDOCAINE 1.5%/EPINEPHrine 1:200,000 PF 5 ML AMP ONE (10:25)
[2018-04-19] MEDS ORDERED: ePHEDrine/NS 25 MG/5 ML SYRINGE ONE (10:27)
[2018-04-19] MEDS ORDERED: fentaNYL 2MCG-BUPIV 0.125% INJ 150 ML EPIDURAL ONE (10:27)
--- NOTE | 2018-04-19 11:39 | PD.LABORPN ---
Subjective Subjective Patient seen and examined with Dr. Hernandes this morning. Patient doing well without complaints. Discussed AROM with patient who expressed understanding and agreed to plan. Objective Objective Pelvic Exam: Cervix: posterior Dilatation: 2cm Effacement: 80% Station: 0 Presentation: vertex Membranes: ruptured s/p AROM Uterine Contractions: q2-5 minutes FHT's: Category: I Baseline: 130s Reactive: +accels Variability: moderate Decels: none noted Weeks Gestation: 36 Assessment/Plan Assessment and Plan 23 year old at 36/2 weeks gestation admitted with pre-eclampsia and induction of labor. 1. Pre-eclampsia - Continue magnesium sulfate - Ordered labetalol per protocol for control of elevated blood pressures - Spot urine/creatinine ratio elevated at 1.14 - continue to monitor vital signs closely 2. IOL - Continue cytotec 25 mcg buccal q4h - Cervix: 2-3/80/-2 - Category I tracing - Contractions q2-5 minutes on tocometer - Betamethasone one dose given 04/19 at 00:25 - GBS unknown, will start penicillin per protocol as patient is pre-term sdw Regino Lopez MD R2 April 19, 2018 11:39
[2018-04-19] MEDS ORDERED: ePHEDrine/NS 25 MG/5 ML SYRINGE IV PUSH PRN (12:00)
[2018-04-19] MEDS ORDERED: PENICILLIN G POTASSIUM INJ 2,500,000 UNITS in SODIUM CHLORIDE 0.9% INJ 100 ML IV SCH (12:00)
[2018-04-19] MEDS ORDERED: NO SYSTEM NARCOTICS PRN (12:00)
[2018-04-19] MEDS ORDERED: DO NOT ADMINISTER ANTICOAGULANTS PRN (12:00)
[2018-04-19] MEDS ORDERED: fentaNYL 2MCG-BUPIV 0.125% 150 ML EPIDURAL PRN (12:00)
[2018-04-19] MEDS ORDERED: OXYTOCIN 30 UNITS-500ML PREMIX 500 ML IV PRN (12:15)
--- NOTE | 2018-04-19 14:58 | PD.OB.DELI ---
Weeks gestation: 36 Artificial rupture of membrane: Yes Artificial ROM date: April 19, 2018 Anesthesia: Epidural Episiotomy: None Vaginal Delivery: Normal, Spontaneous Presentation: Occiput anterior Nuchal Cord: None Delayed cord clamping (45 sec): Yes Infant: Male Delivery date: April 19, 2018 Delivery time: 14:36 One Minute : 8 Five Minute : 9 Weight: 2350 grams Placenta: Spontaneous delivery, Intact, 3 vessel cord Laceration: 1 deg Estimated blood loss: < 200 cc Additional Information 23 year old now delivered via over an intact perineum at 36/2 weeks gestation. Apgars 8/9 at 1/5 minutes respectively. Placenta delivered intact, spontaneously. 1st degree laceration noted. Excellent hemostasis was achieved spontaneously. No further bleeding. EBL < 200 cc. (Regino Baig MD R2) Collaborating MD Comments This delivery was attended by Dr Pierce for supervision as I was in the operative room. After delivery I arrived to inspect the perineum and placental delivery. (Shanice Tejeda MD) Regino Baig MD R2 April 19, 2018 14:58 Shanice Tejeda MD April 20, 2018 09:10
[2018-04-19] MEDS ORDERED: DOCUSATE SODIUM 50 MG/SENNA 8.6 MG TAB PO PRN (15:00)
[2018-04-19] MEDS ORDERED: oxyCODONE/ACETAMINOPHEN 5 MG/325 MG TAB PO PRN ×2 (15:00)
[2018-04-19] MEDS ORDERED: ONDANSETRON ODT 4 MG TAB PO PRN (15:00)
[2018-04-19] MEDS ORDERED: IBUPROFEN 800 MG TAB PO PRN (15:00)
[2018-04-19] MEDS ORDERED: ALUMINUM/MAGNESIUM/SIMETH 30 ML CUP PO PRN (15:00)
[2018-04-19] MEDS ORDERED: WITCH HAZEL 50%/GLYCERIN 12.5% 40 PAD JAR TOPICAL PRN (15:00)
[2018-04-19] MEDS ORDERED: SODIUM CHLORIDE 0.9% FLUSH 10 ML FLUSH IV FLUSH SCH (15:00)
[2018-04-19] MEDS ORDERED: OXYTOCIN 30 UNITS-500ML PREMIX 500 ML IV SCH (15:00)
[2018-04-19] MEDS ORDERED: BENZOCAINE 20% TOPICAL SPRAY 60 ML CAN TOPICAL PRN (15:00)
[2018-04-19] MEDS ORDERED: DIPHTH/TETANUS/ACEL PERTUSSIS (BOOSTER) 0.5 ML VIAL/PFS IM ONE (16:00)
[2018-04-19] MEDS ORDERED: MEASLES, MUMPS, RUBELLA VACCINE 0.5 ML VIAL SQ ONE (16:00)
[2018-04-19] MEDS ORDERED: ZOLPIDEM TARTRATE 5 MG TAB PO PRN (21:00)
[2018-04-20] MEDS: MAGNESIUM SULFATE 40 GM PREMIX 1,000 ML IV SCH (01:17)
--- NOTE | 2018-04-20 08:50 | HHI.OB ---
Subjective Post Day: 1 Remarks Patient seen and examined this morning. AFVSS overnight. day #1. Patient states her pain is well controlled. Decreased lochia. Denies dysuria. No breast tenderness. Denies fevers or chills, confusion, calf pain, shortness of breath, or cough. She otherwise has no other complaints or concerns this morning. Objective Objective Remarks GENERAL: Well-nourished, well-developed patient. CARDIOVASCULAR: Regular rate and rhythm without murmurs, gallops, or rubs. RESPIRATORY: Breath sounds equal bilaterally. No accessory muscle use. ABDOMEN/GI: Abdomen soft, non-tender. Fundus: Firm, non-tender at umbilicus. GENITOURINARY: Light to moderate bleeding. EXTREMITIES: No cyanosis or edema, non-tender, without signs of DVT. Medications and IVs Current Medications Medications (Trade) Dose Ordered Sig/Ervin Route Start Time Stop Time Status Last Admin Lactated Ringer's 1,000 ml @ 75 mls/hr [id number] IV 04/19/18 01:23 04/19/18 10:35 (NS Flush) 2 ml UNSCH PRN IV FLUSH 04/19/18 01:30 (NS Flush) 2 ml BID IV FLUSH 04/19/18 09:00 Magnesium Sulfate 1,000 ml @ 50 mls/hr Q20H IV 04/19/18 05:00 04/20/18 01:17 (Calcium Gluconate Inj) 1 gm UNSCH PRN IV PUSH 04/19/18 01:30 (Zofran Inj) 4 mg Q6H PRN IV PUSH 04/19/18 10:15 ([facility]) No systemic narcotics to be given except... UNSCH PRN .XX 04/19/18 12:00 04/20/18 11:59 ([facility]) DO NOT ADMINISTER ANY ANTICOAGUL... UNSCH PRN .XX 04/19/18 12:00 04/20/18 11:59 Fentanyl/ Bupivacaine/ Sodium Chlor 150 ml @ 0 mls/hr TITRATE PRN EPIDURAL 04/19/18 12:00 (ePHEDrine/NS 25 MG/5 ML SYR) 10 mg UNSCH PRN IV PUSH 04/19/18 12:00 04/20/18 11:59 Oxytocin 500 ml @ 0 mls/hr TITRATE PRN IV 04/19/18 12:15 (Tylenol) 650 mg Q4H PRN PO 04/19/18 15:00 (Motrin) 800 mg Q8H PRN PO 04/19/18 15:00 (Percocet 5-325 Mg) 1 tab Q4H PRN PO 04/19/18 15:00 04/20/18 01:38 (Percocet 5-325 Mg) 2 tab Q4H PRN PO 04/19/18 15:00 (Americaine 20% Top Spr) 1 spray Q4H PRN TOPICAL 04/19/18 15:00 (Tucks Pads) 1 applic QID PRN TOPICAL 04/19/18 15:00 (Constance-Colace) 2 tab Q12H PRN PO 04/19/18 15:00 (Ambien) 5 mg HS PRN PO 04/19/18 21:00 (Mag-Al Plus Susp Liq) 15 ml Q8H PRN PO 04/19/18 15:00 (Zofran Odt) 4 mg Q6H PRN PO 04/19/18 15:00 Assessment/Plan Assessment and Plan 23 year old PPD#1. 1. Care complicated by pre-eclampsia - AFVSS - Motrin or Percocet prn pain - Advised pelvic rest x 6 weeks - Will f/u with OB provider in 6 weeks - BPs 130s-150s/60s-80s - Continue magnesium sulfate for 24 hours dw OB Hospitalist Regino Baig MD R2 April 20, 2018 08:50
[2018-04-20] MEDS ORDERED: NIFEdipine 30 MG SUSTAINED RELEASE TAB PO ONE (17:00)
[2018-04-20] MEDS ORDERED: NIFEdipine 10 MG CAP PO ONE (20:15)
[2018-04-20] MEDS ORDERED: NIFEdipine 10 MG CAP PO PRN (21:15)
--- NOTE | 2018-04-21 08:53 | HHI.OB ---
Subjective Post Day: 2 Remarks Patient seen and examined this morning. AF overnight. BPs ranging 120s-150s/70s- 90s. day #2. Patient states her pain is well controlled. Decreased lochia. Denies fevers or chills, calf pain, shortness of breath. She otherwise has no other complaints or concerns this morning. Objective Objective Remarks GENERAL: Well-nourished, well-developed patient. CARDIOVASCULAR: Regular rate and rhythm without murmurs, gallops, or rubs. RESPIRATORY: Breath sounds equal bilaterally. No accessory muscle use. ABDOMEN/GI: Abdomen soft, non-tender. Fundus: Firm, non-tender at umbilicus. GENITOURINARY: Light to moderate bleeding. EXTREMITIES: No cyanosis or edema, non-tender, without signs of DVT. Medications and IVs Current Medications Medications (Trade) Dose Ordered Sig/Ervin Route Start Time Stop Time Status Last Admin Lactated Ringer's 1,000 ml @ 75 mls/hr [id number] IV 04/19/18 01:23 04/19/18 10:35 (NS Flush) 2 ml UNSCH PRN IV FLUSH 04/19/18 01:30 (NS Flush) 2 ml BID IV FLUSH 04/19/18 09:00 Magnesium Sulfate 1,000 ml @ 50 mls/hr Q20H IV 04/19/18 05:00 04/20/18 01:17 (Calcium Gluconate Inj) 1 gm UNSCH PRN IV PUSH 04/19/18 01:30 (Zofran Inj) 4 mg Q6H PRN IV PUSH 04/19/18 10:15 Fentanyl/ Bupivacaine/ Sodium Chlor 150 ml @ 0 mls/hr TITRATE PRN EPIDURAL 04/19/18 12:00 Oxytocin 500 ml @ 0 mls/hr TITRATE PRN IV 04/19/18 12:15 (Tylenol) 650 mg Q4H PRN PO 04/19/18 15:00 (Motrin) 800 mg Q8H PRN PO 04/19/18 15:00 04/20/18 19:22 (Percocet 5-325 Mg) 1 tab Q4H PRN PO 04/19/18 15:00 04/20/18 01:38 (Percocet 5-325 Mg) 2 tab Q4H PRN PO 04/19/18 15:00 (Americaine 20% Top Spr) 1 spray Q4H PRN TOPICAL 04/19/18 15:00 (Tucks Pads) 1 applic QID PRN TOPICAL 04/19/18 15:00 (Constance-Colace) 2 tab Q12H PRN PO 04/19/18 15:00 (Ambien) 5 mg HS PRN PO 04/19/18 21:00 (Mag-Al Plus Susp Liq) 15 ml Q8H PRN PO 04/19/18 15:00 (Zofran Odt) 4 mg Q6H PRN PO 04/19/18 15:00 (Procardia Xl) 40 mg DAILY PO 04/21/18 09:00 UNV Assessment/Plan Assessment and Plan 23 year old PPD#2. 1. Care complicated by pre-eclampsia - Afebrile, blood pressures are stable - Motrin prn pain - Advised pelvic rest x 6 weeks - BPs 130s-150s/60s-80s overnight - s/p magnesium sulfate for 24 hours - Patient instructed to continue Procardia XL 30 mg once daily at home along with Procardia 10 mg TID - Instructed patient to follow up with her outpatient OB provider within one week after hospital discharge for close follow up dw OB Hospitalist Regino Baig MD R2 Apr 21, 2018 08:53
[2018-04-21] MEDS ORDERED: NIFEdipine 30 MG SUSTAINED RELEASE TAB PO SCH ×3 (09:00→09:15)
[2018-04-21] MEDS ORDERED: NIFEdipine 10 MG CAP PO ONE (09:15)
[2018-04-21] MEDS ORDERED: NIFE30TA8 PO (09:47)
[2018-04-21] MEDS ORDERED: PERI PO (09:47)
[2018-04-21] MEDS ORDERED: NIFE10 PO (09:47)
[2018-04-21] MEDS ORDERED: IBUP1TAB7 PO (09:47)
--- NOTE | 2018-04-21 09:48 | HHI.DCPOC ---
Discharge Care Plan Diagnosis: (1) Preeclampsia (2) 36 weeks gestation of Report Symptoms to Your Doctor -Temperature above 100.5 degrees -Redness, of incision or excessive or foul smelling drainage -Unusual pain or calf pain -Increased vaginal bleeding -Painful or difficulty urinating -Feelings of extreme sadness or anxiety after 2 weeks Goals to Promote Your Health * To prevent worsening of your condition and complications, take all of your medications as prescribed and follow up with your OB provider after hospital discharge. Directions to Meet Your Goals Take your medications as prescribed Follow your dietary instruction Follow activity as directed Ensure plenty of rest for recovery Drink fluids for hydration Keep your appointments as scheduled Take your immunizations and boosters as scheduled If your symptoms worsen call your PCP, if no PCP go to Urgent Care Center or Emergency Room Smoking is Dangerous to Your Health. Avoid second hand smoke Call the 24-hour crisis hotline for domestic abuse at Regino Baig MD R2 Apr 21, 2018 09:48
== END 2018-04-21 14:47 | disposition home or self-care (01) | DRG 775 ==
LOC: HOBED 22:34 → H2EB 04-19 01:05 → H2EA 04-19 17:17
PROVIDERS: ADMIT Obstetrics & Gynecology; ATTEND Obstetrics & Gynecology
PROC: 10E0XZZ Delivery of Products of Conception, External Approach (ICD-10-PCS; principal; 2018-04-19)
PROC: 3E0R3BZ Introduction of Anesthetic Agent into Spinal Canal, Percutaneous Approach (ICD-10-PCS; 2018-04-19)
PROC: 00HU33Z Insertion of Infusion Device into Spinal Canal, Percutaneous Approach (ICD-10-PCS; 2018-04-19)
PROC: 10907ZC Drainage of Amniotic Fluid, Therapeutic from Products of Conception, Via Natural or Artificial Opening (ICD-10-PCS; 2018-04-20)
DX: O14.94 Unspecified pre-eclampsia, complicating childbirth (principal); O70.0 First degree perineal laceration during delivery; Z37.0 Single live birth; Z3A.36 36 weeks gestation of pregnancy
CPT/HCPCS: 80053; 80307; 81001; 82570; 84156; 84550; 85025; 86850; 86900; 86901; 96360; 96361; 96372; G0481; J0702; J2540; J3475; J7120